=== PATIENT | female | born 1960 | race Caucasian/White ===

== ENCOUNTER 2022-05-13 06:48 | Outpatient (REF) | payer OTHER, SELFPAY ==
[2022-05-13 11:17] LABS: MANUAL DIFF FLAG NO
[2022-05-13 11:23] LABS: Basophils Absolute Auto 0.1 X10*3/uL (0.0-0.2); Eosinophils Absolute Auto 0.2 X10*3/uL (0.0-0.4); Eosinophils Percent Auto 3.6 % (0-4); Hematocrit 41.9 % (37.0-47.0); Hemoglobin 13.8 g/dl (12.0-16.0); Imm Gran Abs Auto 0.02 X10*3/uL (0.00-0.03); Imm Gran Pct Auto 0.4 % (0.0-0.4); Lymphocytes Absolute Auto 1.4 X10*3/uL (1.2-4.9); Mean Corpuscular HGB Conc 32.9 g/dl (31.0-35.0); Mean Corpuscular Hemoglobin 31.2 pg (27.0-33.0); Mean Corpuscular Volume 94.8 fL (80.0-98.0); Mean Platelet Volume 13.5 fL (9.4-12.3); Monocytes Absolute Auto 0.5 X10*3/uL (0.1-1.2); Monocytes Percent Auto 9.2 % (2-11); Neutrophils Absolute Auto 3.1 x10*3/uL (2.0-8.3); Neutrophils Percent Auto 58.8 % (45-73); Platelet Count 160 X10*3/uL (160-400); Red Blood Count 4.42 X10*6/uL (4.20-5.50); Red Cell Distribution Width 12.2 % (11.0-16.0); White Blood Count 5.2 X10*3/uL (4.8-10.8)
[2022-05-13 11:46] LABS: Alanine Aminotransferase 18 U/L (0-31); Anion Gap 14 (12-20); Aspartate Amino Transferase 18 U/L (5-31); Blood Urea Nitrogen 20 mg/dL (9-16); Calcium 9.1 mg/dL (8.4-10.2); Carbon Dioxide 27 mmol/L (22-29); Chloride 104 mmol/L (96-108); Cholesterol 230 mg/dL; Estimated Glomerular Filt Rate > 60; Glucose Fasting 86 mg/dL (60-99); HDL Cholesterol 62 mg/dL; LDL Cholesterol Calculated 150 mg/dl; Potassium 4.3 mmol/L (3.3-5.1); Sodium 141 mmol/L (135-145); Triglycerides 90 mg/dL
[2022-05-13 11:56] LABS: Vitamin D 25-OH Total 34.5 ng/mL (>30)
[2022-05-13 12:20] LABS: Vitamin B12 390 pg/mL (200-900)
== END 2022-05-13 06:49 | disposition home or self-care (01) ==
LOC: HO.HMGCLDS 06:48
PROVIDERS: PCP Internal Medicine; Visit Provider Internal Medicine
DX: Z00.01 Encounter for general adult medical examination with abnormal findings (principal); N95.9 Unspecified menopausal and perimenopausal disorder; J38.2 Nodules of vocal cords
CPT/HCPCS: 36415; 80048; 80061; 82306; 82607; 82746; 84450; 84460; 85025

== ENCOUNTER 2023-09-19 08:18 | Outpatient (AMB) | payer OTHER, SELFPAY ==
--- NOTE | 2023-09-19 08:25 | MHC.PC.OV ---
Vital Signs 09/19/23 08:31 Height 5 ft 1 in Weight 160 lb BMI 30.2 BP 112/80 Blood Pressure Location Rt brachial Position Sitting Pulse 76 Pulse Source Pulse Oximeter Pulse Oximetry (%) 95 Oxygen Delivery Method Room Air Intake Visit Reasons: Annual PE Intake Note: Pt is here today for her PE: last mammogram 05/30/23, pap smear 2yrs ago a [facility] has an appt 11/23/23 for pap: colonoscopy scheduled for 09/21/23 at [facility] Allergies hydromorphone [From DILAUDID] Allergy (Mild, Verified 09/19/23 08:58) UNKNOWN Medication List - Last Reconciled 09/19/23 by Vickie Jorgensen MD ibuprofen mg PO DAILY sertraline 75 mg (1.5 x 50 mg) PO DAILY Tobacco use date assessed: 09/19/23 Dental Screening Dental Screen Date: 09/19/23 Did you have a dental visit in the last 12 months?: Yes Did you have a dental problem in the last 6 months where you did not have access to dental care?: Yes Was dental information given to patient?: Patient has dentist HPI Annual PE HPI Details 63-year-old lady here today for her physical exam. She had a mammogram 05/30/23, pap smear 2yrs ago at [facility], and has an appt 11/23/23 for pap; colonoscopy scheduled for 09/21/23 at [facility] withn Dr Cody Covington. Sees [facility] in [facility] for her routine skin exam here Has dyslipidemia, currently not on any medication, but has been following a healthy diet and exercises regularly. She has generalized anxiety disorder, currently doing well on sertraline. Still works full-time. Feels well with no complaints at present time. She is up-to-date with all her vaccinations. [facility] Medical History (Updated 09/19/23 @ 09:22 by Vickie Jorgensen MD) Hyperlipidemia Generalized anxiety disorder Vocal cord nodule Stress incontinence in female FH: brain aneurysm History of deviated nasal septum Hx of dislocation of ankle Hx of aneurysm Surgical History History of ankle surgery Family History Father Diabetes mellitus Mother Macular degeneration Atrial fibrillation HTN (hypertension) Social History Housing: House Patient Tobacco Use Status: Former Tobacco user Years Smoked: 20 yrs e-Cigarette/Vaping Use: Never Used Second Hand Smoke Exposure: No service: No Current occupational status: employed Cognitive needs: No Hearing needs: No Vision needs: Yes Female Reproductive History Menstrual Menopause type: natural Questionnaire PHQ-9 Over the last 2 weeks, how often have you been bothered by any of the following problems? 1. Little interest or pleasure in doing things: not at all 2. Feeling down, depressed, or hopeless: not at all 3. Trouble falling or staying asleep, or sleeping too much: not at all 4. Feeling tired or having little energy: several days 5. Poor appetite or overeating: several days 6. Feeling bad about yourself - or that you are a failure or have let yourself or your family down: not at all 7. Trouble concentrating on things, such as reading the newspaper or watching television: several days 8. Moving or speaking so slowly that other people could have noticed. Or the opposite - being so fidgety or restless that you have been moving around a lot more than usual: not at all 9. Thoughts that you would be better off or of hurting yourself in some way: not at all Total score: 3 Depression Screening Interpretation: Negative Depression Screening Done: Yes 11446 - PHQ-9 Billing: Yes Source: Developed by Drs. Sai Pearson, Raya Grady, Denton Townsend and colleagues, with an educational david from [employer]. Thrive Questionnaire Date Thrive assessed: 09/19/23 I am a: Patient What is your living situation today?: I have a steady place to live Within the past 12 months, did the food you bought not last and you didn't have the money to get more?: Never true Within the past 12 months, did you worry whether your food would run out before you got money to buy more?: Never true Do you have trouble paying for medicines?: No Do you have trouble getting transportation to medical appointments?: No Do you have trouble paying your heating and electricity bill?: No Do you have trouble taking care of your child, family member or friend?: No Do you have trouble with day-to-day activities such as bathing, preparing meals, shopping, managing finances, etc.?: No Are you currently unemployed and looking for a job?: No Are you interested in more education?: No THRIVE Score: 0 AUDIT C Alcohol Use Questionnaire (AUDIT-C) 1. How often do you have a drink containing alcohol?: Never Total Score: 0 STEFFANY-7 AMB Questionnaire STEFFANY-7 Date STEFFANY - 7 assessed: 09/19/23 Feeling nervous, anxious, or on edge: 1 = Several days Not being able to stop or control worryin = Several days Worrying too much about different things: 1 = Several days Trouble relaxin = Several days Being so restless that it is hard to sit still: 1 = Several days Becoming easily annoyed or irritable: 0 = Not at all Feeling afraid as if something awful might happen: 0 = Not at all Total STEFFANY-7 score (0-4 normal; 5-9 mild; 10-14 moderate; 15-21 severe): 5 Source: Developed by Drs. Sai Pearson, Raya Grady, Denton Townsend and colleagues, with an educational david from [employer]. STEFFANY-7 Assessment Billing STEFFANY-7 Assessment Tool: STEFFANY-7 Assessment 15908 Review of Systems Const Denies body aches, Denies fatigue, Denies fever(s), Denies headache(s) and Denies weakness [facility] glasses Denies change in vision ENT Denies dysphagia, Denies dizziness, Denies headache(s), Denies nasal congestion and Denies post nasal drip Card Denies chest pain, Denies lightheadedness, Denies palpitations and Denies dyspnea Resp Denies chest congestion, Denies cough, Denies dyspnea and Denies wheezing GI Denies abdominal pain, Denies change in bowel habits, Denies dysphagia and Denies heartburn Details: Has occasional incontinence with cough and sneezing Denies hot flashes, Denies dysuria, Denies urinary hesitancy and Denies vaginal discharge Musc Reports no additional complaints Skin/Breast Details: Goes to [facility] in [facility] for her routine skin exam Denies lesions and Denies rash Neuro Denies dizziness, Denies headache(s) and Denies weakness Psych Reports no additional complaints Endo Denies fatigue and Denies palpitations Rodrigo/Lymph Denies easy bleeding and Denies easy bruising Aller/Immun Denies seasonal rhinorrhea and Denies wheezing Physical exam (Primary Care) Vital Signs: Last Vital Signs Pulse 76 09/19/23 08:31 BP 112/80 09/19/23 08:31 Pulse Ox 95 09/19/23 08:31 Oxygen Delivery Method Room Air 09/19/23 08:31 BMI result Body Mass Index 30.2 Tobacco/Smoking Status: Tobacco use Status Tobacco use date assessed 09/19/23 09/19/23 08:34 Patient Tobacco Use Status Former Tobacco user 09/19/23 08:27 e-Cigarette/Vaping Use Never Used 09/19/23 08:27 PHQ-9: PHQ-9 Score PHQ-9: Total score 3 09/19/23 08:44 Depression Screening Interpretation: Negative Thrive Assessment: Date of Thrive Assessment Date Thrive assessed 09/19/23 09/19/23 08:44 Const General: cooperative, comfortable and no acute distress Orientation/consciousness: patient oriented x3 Limitations: no limitations HENMT Ears: hearing grossly normal bilaterally, external ears normal, TM's normal bilaterally and EAC's normal General nose exam: Normal external nose present, Normal nasal mucous membranes and turbinates present and No nasal discharge present Mouth: Normal oral and palatal mucosa present, oropharynx normal and moist mucous membranes Throat: Yes posterior oropharynx normal Eyes Pupils: Equal, round and reactive pupils present Neck Neck: Yes full ROM, Yes no lymphadenopathy and Yes supple Chest Breast/axilla palpation: normal palpation of the breasts Resp Effort & Inspection: normal respiratory effort and able to speak in complete sentences Auscultation: clear to auscultation bilaterally Cardio Rate: regular rate Rhythm: regular rhythm Heart sounds: S1 normal heart sound present and S2 normal heart sound present GI Inspection: Yes normal to inspection Palpation (GI): Soft to palpation, nontender and no masses Auscultation: normal bowel sounds Other: sees OBGYN for routine pap / pelvic exam and mammogram ordered, seen 08/2021 Back/Spine/Pelvis Back: No back tenderness Skin General skin exam: no rashes or lesions noted Neuro General: patient oriented x3, gait normal, tone normal, moves all extremities, Normal light touch and pain sensation and no focal motor deficits Cranial nerves: Yes Equal, round and reactive pupils present Cognition (Neuro): normal cognition Gait exam (Neuro): Normal gait present Motor exam (neuro): 5/5 motor strength present throughout Extrem General: Yes full ROM, Yes no joint enlargement, Yes no clubbing, cyanosis or edema, Yes no pedal edema, Yes no calf tenderness and Yes normal gait Psych Appearance: grossly normal and well kempt Speech and movement: Normal speech and movement present Affect: normal affect Attitude: cooperative Thought process: Normal thought process present Assessment and Plan Assessment & Plan (1) Annual visit for general adult medical examination with abnormal findings: Code(s): Z00.01 - Encounter for general adult medical examination with abnormal findings Plan: Will check appropriate labs. Continue regular dental visit every 6 months and regular eye exams, at least every 2 years. Take adequate calcium in diet and vitamin-D 3 at 2000 IU per cap once a day, in addition to weight-bearing exercises to help maintain good muscle tone and weight control. Instructed to do self-breast exam, and continue with yearly mammogram, and cervical cancer screening, goes to [facility]. Up-to-date with all her vaccinations. Has an appointment for her screening colonoscopy in [address] Covington at [facility]. (2) Hyperlipidemia: Code(s): E78.5 - Hyperlipidemia, unspecified Qualifiers: Hyperlipidemia type: pure hypercholesterolemia Qualified Code(s): E78.00 - Pure hypercholesterolemia, unspecified Plan: Fasting lipid panel ordered, continue with healthy eating habits, and regular exercise (3) Generalized anxiety disorder: Code(s): F41.1 - Generalized anxiety disorder Plan: Stable and controlled on sertraline (4) Post-menopause: Code(s): Z78.0 - Asymptomatic menopausal state Plan: Continue with regular weight-bearing exercise and take adequate calcium and vitamin-D 3 supplements at least 2000 units daily. Advised to get bone density scan, will check with her OB if they are going to be ordered together with her screening mammogram in May this year Orders: Orders Lipid Panel Today E78.5 - Hyperlipidemia, unspecified, F41.1 - Generalized anxiety disorder, Z00.01 - Encounter for general adult medical examination with abnormal findings, Z78.0 - Asymptomatic menopausal state Basic Metabolic Panel Fasting Today E78.5 - Hyperlipidemia, unspecified, F41.1 - Generalized anxiety disorder, Z00.01 - Encounter for general adult medical examination with abnormal findings, Z78.0 - Asymptomatic menopausal state Alanine Aminotransferase Today E78.5 - Hyperlipidemia, unspecified, F41.1 - Generalized anxiety disorder, Z00.01 - Encounter for general adult medical examination with abnormal findings, Z78.0 - Asymptomatic menopausal state Aspartate Amino Transferase Today E78.5 - Hyperlipidemia, unspecified, F41.1 - Generalized anxiety disorder, Z00.01 - Encounter for general adult medical examination with abnormal findings, Z78.0 - Asymptomatic menopausal state Vitamin D 25-OH Total Today E78.5 - Hyperlipidemia, unspecified, F41.1 - Generalized anxiety disorder, Z00.01 - Encounter for general adult medical examination with abnormal findings, Z78.0 - Asymptomatic menopausal state Coding Level of Care Code Est Pt Prev Care 40-64y([id number]) Diagnoses Annual visit for general adult medical examination with abnormal findings Z00.01 Pure hypercholesterolemia E78.00 Hyperlipidemia type: pure hypercholesterolemia Generalized anxiety disorder F41.1 Post-menopause Z78.0 Additional Codes STEFFANY-7 Assessment Billing - STEFFANY-7 Assessment Tool: STEFFANY-7 Assessment 11523 ([id number])
[2023-09-19 08:31] VITALS: BP 112/80; PULSE 76; O2SAT 95; BMI 30.2
== END 2023-09-19 09:19 | disposition home or self-care (01) ==
PROVIDERS: PCP Internal Medicine; Visit Provider Internal Medicine
DX: Z00.00 Encounter for general adult medical examination without abnormal findings (principal); E78.00 Pure hypercholesterolemia, unspecified; F41.1 Generalized anxiety disorder; Z78.0 Asymptomatic menopausal state
CPT/HCPCS: 99396

== ENCOUNTER 2023-09-19 09:19 | Outpatient (REF) | payer OTHER, SELFPAY ==
[2023-09-19 11:06] LABS: Alanine Aminotransferase 18 U/L (0-31); Anion Gap 10 (12-20); Aspartate Amino Transferase 18 U/L (5-31); Blood Urea Nitrogen 22 mg/dL (9-16); Calcium 9.4 mg/dL (8.4-10.2); Carbon Dioxide 31 mmol/L (22-29); Chloride 104 mmol/L (96-108); Cholesterol 229 mg/dL (<200); Estimated Glomerular Filt Rate > 60; Glucose Fasting 85 mg/dL (60-99); HDL Cholesterol 62 mg/dL (>40); LDL Cholesterol Calculated 144 mg/dL (<100); Potassium 4.3 mmol/L (3.3-5.1); Sodium 141 mmol/L (135-145); Triglycerides 115 mg/dL (<150)
[2023-09-19 11:21] LABS: Vitamin D 25-OH Total 30.6 ng/mL (>30)
== END 2023-09-19 09:20 | disposition home or self-care (01) ==
LOC: HO.HMGCLDS 09:19
PROVIDERS: PCP Internal Medicine; Visit Provider Internal Medicine
DX: Z00.01 Encounter for general adult medical examination with abnormal findings (principal); E78.5 Hyperlipidemia, unspecified; F41.1 Generalized anxiety disorder; Z78.0 Asymptomatic menopausal state
CPT/HCPCS: 36415; 80048; 80061; 82306; 84450; 84460

== ENCOUNTER 2024-10-02 13:24 | Outpatient (AMB) | payer OTHER, SELFPAY ==
--- NOTE | 2024-10-02 13:38 | MHC.PC.OV ---
Vital Signs 10/02/24 13:49 Height 5 ft 2 in Weight 158 lb BMI 28.9 BP 110/70 Blood Pressure Location Rt brachial Position Sitting Respiration 14 Pulse 61 Pulse Source Pulse Oximeter Temp 97.8 F Temp Source Oral Pulse Oximetry (%) 98 Oxygen Delivery Method Room Air Intake Visit Reasons: Annual PE Intake Note: Pt is here today for her PE: last mammogram 05/30/23, papsmear 08/30/21 Allergies hydromorphone [From DILAUDID] Allergy (Mild, Verified 10/02/24 14:11) UNKNOWN Medication List - Last Reconciled 10/02/24 by Vickie Jorgensen MD ibuprofen mg PO DAILY sertraline 75 mg (1.5 x 50 mg) PO DAILY Tobacco use date assessed: 10/02/24 Fall risk assessment: No Falls in past year Last assessed Fall Risk: 10/02/24 Dental Screening Dental Screen Date: 10/02/24 Did you have a dental visit in the last 12 months?: Yes Did you have a dental problem in the last 6 months where you did not have access to dental care?: No Was dental information given to patient?: Patient has dentist HPI Annual PE HPI Details 64-year-old lady with history of dyslipidemia, generalized anxiety disorder, here today for physical exam. Anxiety symptoms stable and controlled on sertraline 75 mg daily. She has been following a healthy diet, stays active, still works full-time She is up-to-date with her screening mammogram done 07/30/2024 which showed negative findings, done at [facility]. She had a bone density scan the same day which showed presence of osteopenia with a T-score of-1.5 and femoral neck and normal in total hip and AP spine no history of fracture. She had her screening colonoscopy done by Dr Cody Covington last 09/21/23 , with negative findings , per patient , copy of results requested . She goes to [facility] for routine Pap and pelvic exam, last done 08/30/2021 with negative finding [facility] Medical History Osteopenia of femoral neck Hyperlipidemia Generalized anxiety disorder Vocal cord nodule Stress incontinence in female FH: brain aneurysm History of deviated nasal septum Hx of dislocation of ankle Hx of aneurysm Surgical History History of ankle surgery Family History Father Diabetes mellitus Mother Macular degeneration Atrial fibrillation HTN (hypertension) Social History Housing: House Patient Tobacco Use Status: Former Tobacco user Years Smoked: 20 yrs e-Cigarette/Vaping Use: Never Used Second Hand Smoke Exposure: No service: No Current occupational status: employed Cognitive needs: No Hearing needs: No Vision needs: Yes Questionnaire PHQ-9 Over the last 2 weeks, how often have you been bothered by any of the following problems? 1. Little interest or pleasure in doing things: not at all 2. Feeling down, depressed, or hopeless: not at all 3. Trouble falling or staying asleep, or sleeping too much: not at all 4. Feeling tired or having little energy: not at all 5. Poor appetite or overeating: not at all 6. Feeling bad about yourself - or that you are a failure or have let yourself or your family down: not at all 7. Trouble concentrating on things, such as reading the newspaper or watching television: not at all 8. Moving or speaking so slowly that other people could have noticed. Or the opposite - being so fidgety or restless that you have been moving around a lot more than usual: not at all 9. Thoughts that you would be better off or of hurting yourself in some way: not at all Total score: 0 Depression Screening Interpretation: Negative Depression Screening Done: Yes Source: Developed by Drs. Sai Pearson, Raya Grady, Denton Townsend and colleagues, with an educational david from [employer]. Thrive Questionnaire Date Thrive assessed: 10/02/24 I am a: Parent/Caregiver What is your living situation today?: I have a steady place to live Within the past 12 months, did the food you bought not last and you didn't have the money to get more?: Never true Within the past 12 months, did you worry whether your food would run out before you got money to buy more?: Never true Do you have trouble paying for medicines?: No Do you have trouble getting transportation to medical appointments?: No Do you have trouble paying your heating and electricity bill?: No Do you have trouble taking care of your child, family member or friend?: No Do you have trouble with day-to-day activities such as bathing, preparing meals, shopping, managing finances, etc.?: No Are you currently unemployed and looking for a job?: No Are you interested in more education?: No Please select the resources that you would like help with: None Currently or been in a relationship where the following occur: No concerns reported THRIVE Score: 0 AUDIT C Alcohol Use Questionnaire (AUDIT-C) 1. How often do you have a drink containing alcohol?: Never Total Score: 0 STEFFANY-7 AMB Questionnaire STEFFANY-7 Date STEFFANY - 7 assessed: 10/02/24 Feeling nervous, anxious, or on edge: 0 = Not at all Not being able to stop or control worryin = Not at all Worrying too much about different things: 0 = Not at all Trouble relaxin = Not at all Being so restless that it is hard to sit still: 0 = Not at all Becoming easily annoyed or irritable: 0 = Not at all Feeling afraid as if something awful might happen: 0 = Not at all Total STEFFANY-7 score (0-4 normal; 5-9 mild; 10-14 moderate; 15-21 severe): 0 Source: Developed by Drs. Sai Pearson, Raya Grady, Denton Townsend and colleagues, with an educational david from [employer]. STEFFANY-7 Assessment Billing STEFFANY-7 Assessment Tool: STEFFANY-7 Assessment 03740 Review of Systems Const Denies body aches, Denies fever(s), Denies headache(s) and Denies weakness [facility] wears reading glasses Denies change in vision ENT Denies dysphagia, Denies dizziness, Denies headache(s), Denies nasal congestion and Denies post nasal drip Card Denies chest pain, Denies lightheadedness and Denies dyspnea Resp Denies chest congestion, Denies cough, Denies dyspnea and Denies wheezing GI Denies abdominal pain, Denies change in bowel habits, Denies dysphagia and Denies heartburn Details: Has occasional incontinence with cough and sneezing Denies hot flashes, Denies dysuria, Denies urinary hesitancy and Denies vaginal discharge Musc Reports no additional complaints Skin/Breast Details: [facility]es to [facility] for her routine skin exam Denies lesions and Denies rash Neuro Denies dizziness, Denies headache(s) and Denies weakness Psych Reports no additional complaints Endo Reports no additional complaints Rodrigo/Lymph Reports no additional complaints Aller/Immun Denies seasonal rhinorrhea and Denies wheezing Physical exam (Primary Care) Vital Signs: Last Vital Signs Temp 97.8 F 10/02/24 13:49 Pulse 61 10/02/24 13:49 Resp 14 10/02/24 13:49 BP 110/70 10/02/24 13:49 Pulse Ox 98 10/02/24 13:49 Oxygen Delivery Method Room Air 10/02/24 13:49 BMI result Body Mass Index 28.9 Tobacco/Smoking Status: Tobacco use Status Tobacco use date assessed 10/02/24 10/02/24 13:40 Patient Tobacco Use Status Former Tobacco user 10/02/24 13:40 e-Cigarette/Vaping Use Never Used 10/02/24 13:40 PHQ-9: PHQ-9 Score PHQ-9: Total score 0 10/02/24 14:11 Depression Screening Interpretation: Negative Thrive Assessment: Date of Thrive Assessment Date Thrive assessed 10/02/24 10/02/24 13:40 Currently or been in a relationship where the following occur: No concerns reported Advance Care Planning discussion: Completed/Scanned Date of discussion: 10/02/24 Who was present: patient Forms completed: Health Care Proxy Time spent: 16-45 minutes Actual minutes spent: 2 Const General: comfortable and no acute distress Orientation/consciousness: patient oriented x3 Limitations: no limitations HENMT Ears: hearing grossly normal bilaterally, external ears normal, TM's normal bilaterally and EAC's normal General nose exam: Normal external nose present Mouth: Normal oral and palatal mucosa present, oropharynx normal and moist mucous membranes Throat: Yes posterior oropharynx normal Eyes Pupils: Equal, round and reactive pupils present Neck Neck: Yes full ROM, Yes no lymphadenopathy and Yes supple Chest Breast/axilla palpation: normal palpation of the breasts Resp Effort & Inspection: normal respiratory effort and able to speak in complete sentences Auscultation: clear to auscultation bilaterally Cardio Rate: regular rate Rhythm: regular rhythm Heart sounds: S1 normal heart sound present and S2 normal heart sound present GI Inspection: Yes normal to inspection Palpation (GI): Soft to palpation, nontender and no masses Auscultation: normal bowel sounds Back/Spine/Pelvis Back: No back tenderness Skin General skin exam: no rashes or lesions noted Neuro General: patient oriented x3, gait normal, tone normal, moves all extremities, Normal light touch and pain sensation and no focal motor deficits Cranial nerves: Yes Equal, round and reactive pupils present Cognition (Neuro): normal cognition Gait exam (Neuro): Normal gait present Motor exam (neuro): 5/5 motor strength present throughout Extrem General: Yes full ROM, Yes no joint enlargement, Yes no clubbing, cyanosis or edema, Yes no pedal edema, Yes no calf tenderness and Yes normal gait Psych Appearance: grossly normal and well kempt Speech and movement: Normal speech and movement present Affect: normal affect Attitude: cooperative Thought process: Normal thought process present Immunizations pneumoc 20-jessy conj-dip cr(PF) 0.5 mL IM syringe Performing Provider: Vickie Jorgensen MD Performing Location: [facility] [place] [facility] Administered by: Anjali Dumont CMA on 10/02/24 14:49 Dose Route Admin Location Dispensed Lot Number Expiration Date [facility] Knitting Machine Operator 0.5 mL IM Left Deltoid 0.5 mL [id number] 12/18/25 9158-0474-16 [employer] VIS Given Date VIS Provided VIS Publication Date 10/02/24 Single Vaccine 21 Eligibility Eligibility Date Funding Source Not [facility] Eligible 10/02/24 Private Coding Level of Care Code Est Pt Prev Care >65y(23287) Diagnoses Annual visit for general adult medical examination with abnormal findings Z00.01 Pure hypercholesterolemia E78.00 Hyperlipidemia type: pure hypercholesterolemia Encounter for counseling regarding advance directives Z71.89 Generalized anxiety disorder F41.1 Osteopenia of femoral neck M85.859 Additional Codes Vital Signs *Quality* - Advance Care Planning discussion: Completed/Scanned ([id number]) Vital Signs *Quality* - Time spent: 16-45 minutes ([id number]) STEFFANY-7 Assessment Billing - STEFFANY-7 Assessment Tool: STEFFANY-7 Assessment 25774 ([id number]) Assessment & Plan Assessment & Plan (1) Annual visit for general adult medical examination with abnormal findings: Code(s): Z00.01 - Encounter for general adult medical examination with abnormal findings Plan: Will check appropriate labs. Continue with regular dental visit every 6 months and regular eye exams, at least every 2 years. Take adequate calcium in diet and vitamin-D 3 at 2000 IU per cap once a day, in addition to weight-bearing exercises to help maintain good muscle tone and weight control. Instructed to do self-breast exam, and continue with yearly mammograms currently up-to-date. She is also up-to-date with her bone density scan, done last year showing osteopenia in femoral neck. Up-to-date with her screening colonoscopy, done 09/21/[facility] at [facility] withn Dr Cody Covington. Up-to-date with all her vaccinations except for her pneumococcal vaccine, Prevnar 20 given today (2) Hyperlipidemia: Code(s): E78.5 - Hyperlipidemia, unspecified Category: Medical Qualifiers: Hyperlipidemia type: pure hypercholesterolemia Qualified Code(s): E78.00 - Pure hypercholesterolemia, unspecified Plan: Fasting lipid panel ordered today continue with healthy eating habits, and stay active, walks regularly for exercise. (3) Encounter for counseling regarding advance directives: Code(s): Z71.89 - Other specified counseling Plan: Initiated the conversation about Advanced Directives. Advanced Directives help patients prepare for current and future decisions about their medical treatment and place of care. Discussed with patient that it is a process where a patients current condition and prognosis are reviewed, their wishes for information regarding their illness are elicited, and likely medical dilemmas are presented and options discussed. Healthcare proxy form completed . The form can be amended as needed, reviewed yearly and make changes as needed (4) Generalized anxiety disorder: Code(s): F41.1 - Generalized anxiety disorder Category: Medical Plan: Stable and controlled on sertraline 75 mg taken once a day (5) Osteopenia of femoral neck: Code(s): M85.859 - Other specified disorders of bone density and structure, unspecified thigh Category: Medical Plan: Repea bone density scan next year. , encouraged to do regular weight-bearing exercise, continue taking adequate calcium from dietary sources and take at least 2000 his vitamin-D 3 daily Orders: Orders Complete Blood Count Auto Diff Today E78.00 - Pure hypercholesterolemia, unspecified, M85.859 - Other specified disorders of bone density and structure, unspecified thigh, Z00.01 - Encounter for general adult medical examination with abnormal findings, Z13.1 - Encounter for screening for diabetes mellitus, Z71.89 - Other specified counseling Basic Metabolic Panel Fasting Today E78.00 - Pure hypercholesterolemia, unspecified, M85.859 - Other specified disorders of bone density and structure, unspecified thigh, Z00.01 - Encounter for general adult medical examination with abnormal findings, Z13.1 - Encounter for screening for diabetes mellitus, Z71.89 - Other specified counseling Aspartate Amino Transferase Today E78.00 - Pure hypercholesterolemia, unspecified, M85.859 - Other specified disorders of bone density and structure, unspecified thigh, Z00.01 - Encounter for general adult medical examination with abnormal findings, Z13.1 - Encounter for screening for diabetes mellitus, Z71.89 - Other specified counseling Pneumococcal 20 Immunization Today Z23 - Encounter for immunization Alanine Aminotransferase Today E78.00 - Pure hypercholesterolemia, unspecified, M85.859 - Other specified disorders of bone density and structure, unspecified thigh, Z00.01 - Encounter for general adult medical examination with abnormal findings, Z13.1 - Encounter for screening for diabetes mellitus, Z71.89 - Other specified counseling Lipid Panel Today E78.00 - Pure hypercholesterolemia, unspecified, M85.859 - Other specified disorders of bone density and structure, unspecified thigh, Z00.01 - Encounter for general adult medical examination with abnormal findings, Z13.1 - Encounter for screening for diabetes mellitus, Z71.89 - Other specified counseling Vitamin D 25-OH Total Today E78.00 - Pure hypercholesterolemia, unspecified, M85.859 - Other specified disorders of bone density and structure, unspecified thigh, Z00.01 - Encounter for general adult medical examination with abnormal findings, Z13.1 - Encounter for screening for diabetes mellitus, Z71.89 - Other specified counseling
[2024-10-02 13:49] VITALS: BP 110/70; PULSE 61; RESP 14; TEMP 36.6; O2SAT 98; BMI 28.9
--- OUTSIDE RECORDS SUMMARY | 2024-10-02 14:49 | XMS_ITS | Referral Summary ---
Author Organization [facility] Address [address] [place] [address] Care Team Providers Care Copyist Name Role Phone Vickie Jorgensen MD Primary Care Provider Allergies Active Allergy Reactions Criticality Noted Date Comments Hydromorphone Hives 11/08/2018 Medications sertraline (ZOLOFT) 50 mg tablet Take 75 mg by mouth daily. 5 9 Active amoxicillin-cla vulanate (AUGMENTIN) 125-31.25 mg/5 mL suspension Take 125 mg by mouth 2 times a day. Active ibuprofen (MOTRIN) 600 mg tablet 1 Active fluticasone propionate (FLONASE) 50 mcg/actuation nasal spray Administer 2 sprays into each nostril once a day. 16 g 5 2 Active sod bicarb-sod chlor-neti pot (NeilMed NasaFlo) packet with rinse device 1 application by sinus irrigation route 2 (two) times a day. 1 each 2 2 Active Active Problems Problem Noted Date Diagnosed Date Subarachnoid Hemorrhage 06/01/2009 Hay fever 06/01/2009 Aneurysm 06/01/2009 Social History Tobacco Use Types Packs/Day Years Used Date Smoking Tobacco: Former Smokeless Tobacco: Never Alcohol Use Standard Drinks/Week Comments Never 0 (1 standard drink = 0.6 oz pur e alcohol) Comments Unknown Sex and Gender Information Value Date Recorded Sex Assigned at Female 08/11/2022 12:12 PM EST Legal Sex Female 11:06 AM EDT Gender Identity Female 08/11/2022 12:12 PM EST Sexual Orientation Straight 08/11/2022 12 :12 PM EST Last Filed Vital Signs Vital Sign Reading Time Taken Comments Blood Pressure 121/84 12/29/2020 1:52 PM EDT Pulse 73 12/29/2020 1:52 PM EDT Temperature 36.8 ??C (98.3 ??F) 12/29/2020 1:52 PM ED T Respiratory Rate - - Oxygen Saturation 98% 10/12/2009 11:19 AM EST Inhaled Oxygen Concentration - - Weight 70.3 kg (155 lb) 12/13/2018 3:15 PM EDT Height 157.5 cm (5' 2 ) 11/08/2018 2:18 PM EDT Body Mass Index 28.35 11/08/2018 2:18 PM EDT Plan of Treatment Not on file Insurance [facility] Care Teams Copyist Relationship Specialty Start Date End Date Vickie Jorgensen MD [address] [place] [address] PCP - General Internal Medicine 02/02/22
--- OUTSIDE RECORDS SUMMARY | 2024-10-02 14:49 | XMS_ITS | Encounter Summary ---
Author Organization [facility] Address [address] [place] [address] Care Team Providers Care Oracle Solutions Architect Name Role Phone Vickie Jorgensen MD Primary Care Provider Encounter Details Date Type Department Care Team (Late st Contact Info) Description 10/23/2020 Orders Only [facility] Interventional Radiology [address] [place], [place] [phone] Linette Sal MD [address] [place], [place] [phone] Social History Tobacco Use Types Packs/Day Years [...] Orientation Straight 08/11/2022 12 :12 PM EST documented as of this encounter Plan of Treatment Not on file documented as of this encounter Visit Diagnoses Not on filedocumented in this encounter Care Teams Oracle Solutions Architect Relationship Specialty Start Date End Date Vickie Jorgensen MD [address] [place] [address] PCP - General Internal Medicine 02/02/22 documented as of this encounter
--- OUTSIDE RECORDS SUMMARY | 2024-10-02 14:49 | XMS_ITS ---
Author Organization [facility] Address [address] [place] [address] Care Team Providers Care Landmen Name Role Phone YVONNE RAMIREZ Unavailable [phone] REASON FOR VISIT cx and r/s appt Encounters Encounter Location Date Provider Diagnosis [address] [place] [id number] 01/29/2024 YVONNE RAMIREZ PLAN OF TREATMENT No Information Progress Notes * Fabio HIGGINSenDOB: [birth year] (63 yo F)Acc No.[id number]:01/29/2024 Patient:??Delmy HIGGINS :1960?Age:63 Y?Sex:Fe male Address:[address] [place] [id number] * true * Date:??
--- OUTSIDE RECORDS SUMMARY | 2024-10-02 14:49 | XMS_ITS | Patient Health Record ---
Author Organization [email or web address] Address [address] [place] [address] Care Team Providers Care Field Radio Operator Name Role Phone YVONNE RAMIREZ Unavailable [phone] CANDIS LUEVANO Unavailable [phone] ALLERGIES Allergen (clinical drug ingredient) Drug/Non Drug Allergy documented on EMR Reaction Allergy Type Onset Date Status hydromorphone Dilaudid hives Drug Allergy Act arlene REASON FOR REFERRAL No Information MEDICATIONS Medication SIG (Take, Route, Fr equency, Duration) Notes Start Date End Date Status Wegovy 1 MG/0.5ML 1mg Subcutaneous wee kly for 30 days Active Sertraline HCl 20 MG/ML 5 mL mixed with 4 ounces of water, orange juice, lemonade, salina mateo or lemon/cantwell soda Orally Once a day Active PROBLEMS Problem Type ICD Code Onset Dates Problem Status W/U Status Risk SNOMED Code Notes Problem Other obesity due to excess calories (E66.09) Active confirmed 765375338 Problem Anxiety disorder, unspecified (F41.9) Active confirmed 724848955 Problem Body mass index [BMI] 30.0-30.9, adult (Z68.30) Active confirmed 912367544 VITAL SIGNS Heart Rate 72 /min 12/07/2023 Oximetry 97 % 12/07/2023 Blood pressure diastolic 76 mm Hg 12/07/2023 Height 60 in 12/07/2023 Blood pressure systolic 120 mm Hg 12/07/2023 Weight 156 lbs 12/07/2023 BMI 30.46 kg/m2 12/07/2023 Encounters Encounter Location Date Provider Diagnosis [facility] [address] [place] [address] 11/01/[address] [facility] [address] [place], [place] 11/13/[address] [facility] [address] [place] [address] 11/15/[address] [facility] [address] [place], [place] 11/22/[address] [facility] [address] [place], [place] 11/28/[address] [facility] [address] [place], [place] 11/29/[address] [facility] [address] [place], [place] 01/30/[address] [facility] [address] [facility] [address] [place] [address] 10/25/2023 YVONNEHIRA RAMIREZ Other obesity due to excess calories E66.09 ; Body mass index [BMI] 30.0-30.9, adult Z68.30 ; Anxiety disorder, unspecified F41.9 and Depression, unspecified F32.A [facility] [address] [place], [place] 12/07/2023 YVONNE TERANKeyana Other obesity due to excess calories E66.09 ; Body mass index [BMI] 30.0-30.9, adult Z68.30 ; Anxiety disorder, unspecified F41.9 and Depression, unspecified F32.A [address] [facility] [address] [place] [address] 01/29/[address] [facility] [address] [place], [place] 10/25/2023 YVONNE BORHOT [facility] [address] [facility] [address] [place], [place] 10/25/2023 YVONNE RAMIREZ ASSESSMENTS Encounter Date Diagnosis Assessment Notes Treatment Notes Treatment Clinical Notes Section Notes 10/25/2023 Body mass index [BMI] 30.0-30.9, adult (ICD-10 - Z68.30) Patient will be started on compounded semaglutide program today discussed cost and and risks associated with this Plan is to transition to tradename Polina after a determined length of time Total time spent today was 60 minutes of which greater than 50% was spent on coordinating and counseling Patient has been found to be obese with a BMI of (30). Patient has class (1) obesity. We are a board certified obesity and weight management practice Patient has trialed behavioral modification, dietary restrictions and exercise for a minimum of 6 months The most recent [place] [employer] of clinical endocrinologists and [place] [employer] guidelines recommend patients who have overweight BMI or obesity BMI, who also have metabolic syndrome, prediabetes, HLD, and other comorbidities or at risk of developing type 2 diabetes should aim for a weight loss goal of at least 10% of the baseline body weight Patient counseled regarding effects of GLP/GIP-1 agonists, and other FDA approved wgt loss meds with regards to a multifactorial approach of weight loss as mentioned above and not solely appetite suppression. We have discussed the mechanism of GLP-1's/GIP, dual incretins I think this would be fantastic option for her given her metabolic workup and body composition We have discussed the risks and benefits and side effects including/and not limited to Sarcopenia, intestinal obstruction, constipation, nausea, lethargy, headache Discussed importance of protein consumption for muscle maintenance as well as strength and resistance training ,probiotics, B12 complex biotin , iron and other nutrients, To help avoid telogen effluvium There is no history of medullary thyroid cancer or multiple endocrine neoplasia There is also no history of cardiovascular disease, hypertension, palpitations, or arrhythmias In the setting of potential stimulant/amphetami ne use such as phentermine We have also discussed risks and benefits, and the use of compounded medications to help offset the national shortages as well as financial implications vs trade name drugs GLP must be discontinued upon initiation We have discussed the lifelong requirement of nutritional supplementation And adherence to an exercise regimen as well as importance of follow-up The patient understands and agrees Patient was reassured and welcomed to the practice. We discussed that we stress a hollistic medical approach with emphasis on lifestyle modification. Patient was informed that a healthy lifestyle with exercise and good eating habits can help reduce his risk of medical complications. He is explained that obesity increases his risk of diabetes, cardiovascular disease, or organ damage. We spent a lot of time discussing the relationship between food, exercise, sleep, mental health and obesity. Patient was counseled on the importance EATING local, organic food when possible. Patient was educated on clean 15 and dirty dozen. I provided information about reading books called The Food Rules by Sergio Lees and Eat Fat Get Lean by Dr Aj Cox. Self education is important in the journey for weight management. Patient was offered diagnostic testing. We want to measure visceral adiposity, advanced body composition, adverse lipids, fatty acid balance, risk for heart disease and atherosclerosis, markers of inflammation and genetic susceptibility. Patient was counseled on weight management and was advised to lose weight using A. Meal Replacement Products We discussed the lifelong requirement of nutritional supplementation and adherence to an exercise regimen as well as importance of dietary f/u Patient was educated on the replacement products called optifast. This is a good way of taking fixed amount of calories. It has been shown in studies to be ineffective weight management tool. We also recommend maintaining adequate protein intake and muscle composition, 1.5mg/kg This however has to be coupled with lifestyle intervention as well as laboratory data and EKG monitoring. It is impossible to know how a person will tolerate complete meal replacement. The side effects of meal replacement and weight loss could include syncopal attacks, dizziness, gallstones, potential cholecystectomy, possible heart attack and even . The benefits of meal replacement would be potential weight loss but no guarantees can be made. Meal replacement products are not covered by insurance. Once the patient has bought these products we cannot return them B. Lifestyle management which includes several strategies as below 1. Eat a low carbohydrate good fat good protein diet. Eliminate refined carbohydrates from the diet. Continue blood sugar and sugared beverages. Eat local organic when possible. Cook your own meals. Read food labels. None about healthy snacks. Portion control and food with low glycemic index 2. Exercise regularly. Try to get at least 6000 steps a day. Use a predominant to track activity level. Consider using apps like SeeYourImpact.org, myfitnesspal, lose it, stick as needed for self-monitoring and weight management. Consider group exercises. Consider hiring a six sigma black trainer. Regular exercise is schaefer to sustainable health and prevents as a buffer against weight regain 3. Sleep is most important for healing. Tried to sleep at least 8 hours a night. A good quality sleep needs a sleep ritual with ideal room temperature of around 68. It might help to take a shower and have no electronics in the room and sleep in a very dark room without artificial light. Start her sleep routine and get up early in the morning and go to bed on time 4. Make a social connection. Surround yourself with positive people with positive energy. Connect with friends and family. 5. Get into the habit of meditating and mindfulness while doing everything. 6. Go outside and connect with nature. C. Prescription medications Patient was educated on the use of prescription medications for medical weight loss. This is a growing list and includes phentermine, Topamax,Qsymia, contrave, belviq and saxenda, wegovy All prescription medications could have side effects including but not limited to kidney stones, seizure disorder cardiac arrhythmias heart attack pancreatitis etc. etc.. Patient was encouraged to read the prescription insert and have coaching with their pharmacist and make an informed decision about taking medication and know that these medications are being prescribed with good intentions and we do not know how a patient would react to her medication. Sudden medications are FDA approved for weight loss and there is also off label use depending on patient's inability to afford medications in an attempt to lose weight D. Behavioral counseling was done to establish a relationship between food and an mood. Patient was provided information about local counseling and psychiatry and Dr Morton at [facility]. We would like to cover regular topics and build on low glycemic eating exercise mindful eating, using yoga and meditation along with deep breathing and connecting with friends and family. E. MASS PAT reviewed, Patient's current medications were reviewed and opinion was given on medication that can cause weight gain and can be substituted F. Patient was assessed for risk with obesity including and not limiting to atherosclerosis heart disease stroke kidney disease, restrictive lung disease, irritable bowel syndrome and overall mortality. Risk of developing prediabetes diabetes and metabolic syndrome was discussed G. Therapeutic plan: We have decided to make therapeutic plan which would include choosing wisely on calories restricting portion getting active, tracking weight, getting good quality sleep and working on time management H. Patient will follow up in (4) weeks for weight management Of note, some information is being carried forward from prior records for informational purposes only and is being cited so that efficiency, safety and quality of the patient's care is not compromised This note was prepared using voice recognition software and direct typing Please excuse inadvertent salvage winder or typing errors, or uncorrected word substitutions Although every attempt has been made by the provider to proofread this document, occasional misspellings and typographical errors may still be present Due to the previous pandemic, and the use of personal protective equipment (PPE) This may decrease voice recognition accuracy Inadvertent salvage winder errors may occur 12/07/2023 Other obesity due to excess calories (ICD-10 - E66.09) Will get a 0.5 mg semaglutide compounded here today, third week Plan is to transition to tradename Wegovy 1 mg Starting in 1 week Total time spent today was 30 minutes of which greater than 50% was spent on coordinating and counseling Patient has been found to be obese with a BMI of (30). Patient has class (1) obesity. We are a board certified obesity and weight management practice Patient has trialed behavioral modification, dietary restrictions and exercise for a minimum of 6 months The most recent [place] [employer] of clinical endocrinologists and [place] [employer] guidelines recommend patients who have overweight BMI or obesity BMI, who also have metabolic syndrome, prediabetes, HLD, and other comorbidities or at risk of developing type 2 diabetes should aim for a weight loss goal of at least 10% of the baseline body weight Patient counseled regarding effects of GLP/GIP-1 agonists, and other FDA approved wgt loss meds with regards to a multifactorial approach of weight loss as mentioned above and not solely appetite suppression. We have discussed the mechanism of GLP-1's/GIP, dual incretins I think this would be fantastic option for her given her metabolic workup and body composition We have discussed the risks and benefits and side effects including/and not limited to Sarcopenia, intestinal obstruction, constipation, nausea, lethargy, headache Discussed importance of protein consumption for muscle maintenance as well as strength and resistance training ,probiotics, B12 complex biotin , iron and other nutrients, To help avoid telogen effluvium There is no history of medullary thyroid cancer or multiple endocrine neoplasia There is also no history of cardiovascular disease, hypertension, palpitations, or arrhythmias In the setting of potential stimulant/amphetami ne use such as phentermine We have also discussed risks and benefits, and the use of compounded medications to help offset the national shortages as well as financial implications vs trade name drugs GLP must be discontinued upon initiation We have discussed the lifelong requirement of nutritional supplementation And adherence to an exercise regimen as well as importance of follow-up The patient understands and agrees Patient was reassured and welcomed to the practice. We discussed that we stress a hollistic medical approach with emphasis on lifestyle modification. Patient was informed that a healthy lifestyle with exercise and good eating habits can help reduce his risk of medical complications. He is explained that obesity increases his risk of diabetes, cardiovascular disease, or organ damage. We spent a lot of time discussing the relationship between food, exercise, sleep, mental health and obesity. Patient was counseled on the importance EATING local, organic food when possible. Patient was educated on clean 15 and dirty dozen. I provided information about reading books called The Food Rules by Sergio Lees and Eat Fat Get Lean by Dr Aj Cox. Self education is important in the journey for weight management. Patient was offered diagnostic testing. We want to measure visceral adiposity, advanced body composition, adverse lipids, fatty acid balance, risk for heart disease and atherosclerosis, markers of inflammation and genetic susceptibility. Patient was counseled on weight management and was advised to lose weight using A. Meal Replacement Products We discussed the lifelong requirement of nutritional supplementation and adherence to an exercise regimen as well as importance of dietary f/u Patient was educated on the replacement products called optifast. This is a good way of taking fixed amount of calories. It has been shown in studies to be ineffective weight management tool. We also recommend maintaining adequate protein intake and muscle composition, 1.5mg/kg This however has to be coupled with lifestyle intervention as well as laboratory data and EKG monitoring. It is impossible to know how a person will tolerate complete meal replacement. The side effects of meal replacement and weight loss could include syncopal attacks, dizziness, gallstones, potential cholecystectomy, possible heart attack and even . The benefits of meal replacement would be potential weight loss but no guarantees can be made. Meal replacement products are not covered by insurance. Once the patient has bought these products we cannot return them B. Lifestyle management which includes several strategies as below 1. Eat a low carbohydrate good fat good protein diet. Eliminate refined carbohydrates from the diet. Continue blood sugar and sugared beverages. Eat local organic when possible. Cook your own meals. Read food labels. None about healthy snacks. Portion control and food with low glycemic index 2. Exercise regularly. Try to get at least 6000 steps a day. Use a predominant to track activity level. Consider using apps like 7 mionute excercise, myfitnesspal, lose it, stick as needed for self-monitoring and weight management. Consider group exercises. Consider hiring a six sigma black trainer. Regular exercise is schaefer to sustainable health and prevents as a buffer against weight regain 3. Sleep is most important for healing. Tried to sleep at least 8 hours a night. A good quality sleep needs a sleep ritual with ideal room temperature of around 68. It might help to take a shower and have no electronics in the room and sleep in a very dark room without artificial light. Start her sleep routine and get up early in the morning and go to bed on time 4. Make a social connection. Surround yourself with positive people with positive energy. Connect with friends and family. 5. Get into the habit of meditating and mindfulness while doing everything. 6. Go outside and connect with nature. C. Prescription medications Patient was educated on the use of prescription medications for medical weight loss. This is a growing list and includes phentermine, Topamax,Qsymia, contrave, belviq and saxenda, wegovy All prescription medications could have side effects including but not limited to kidney stones, seizure disorder cardiac arrhythmias heart attack pancreatitis etc. etc.. Patient was encouraged to read the prescription insert and have coaching with their pharmacist and make an informed decision about taking medication and know that these medications are being prescribed with good intentions and we do not know how a patient would react to her medication. Sudden medications are FDA approved for weight loss and there is also off label use depending on patient's inability to afford medications in an attempt to lose weight D. Behavioral counseling was done to establish a relationship between food and an mood. Patient was provided information about local counseling and psychiatry and Dr Morton at [facility]. We would like to cover regular topics and build on low glycemic eating exercise mindful eating, using yoga and meditation along with deep breathing and connecting with friends and family. E. MASS PAT reviewed, Patient's current medications were reviewed and opinion was given on medication that can cause weight gain and can be substituted F. Patient was assessed for risk with obesity including and not limiting to atherosclerosis heart disease stroke kidney disease, restrictive lung disease, irritable bowel syndrome and overall mortality. Risk of developing prediabetes diabetes and metabolic syndrome was discussed G. Therapeutic plan: We have decided to make therapeutic plan which would include choosing wisely on calories restricting portion getting active, tracking weight, getting good quality sleep and working on time management H. Patient will follow up in (4) weeks for weight management Of note, some information is being carried forward from prior records for informational purposes only and is being cited so that efficiency, safety and quality of the patient's care is not compromised This note was prepared using voice recognition software and direct typing Please excuse inadvertent salvage winder or typing errors, or uncorrected word substitutions Although every attempt has been made by the provider to proofread this document, occasional misspellings and typographical errors may still be present Due to the previous pandemic, and the use of personal protective equipment (PPE) This may decrease voice recognition accuracy Inadvertent salvage winder errors may occur 10/25/2023 Other obesity due to excess calories (ICD-10 - E66.09) Patient will be started on compounded semaglutide program today discussed cost and and risks associated with this Plan is to transition to tradename Paws for LifececeAllurent after a determined length of time Total time spent today was 60 minutes of which greater than 50% was spent on coordinating and counseling Patient has been found to be obese with a BMI of (30). Patient has class (1) obesity. We are a board certified obesity and weight management practice Patient has trialed behavioral modification, dietary restrictions and exercise for a minimum of 6 months The most recent [place] [employer] of clinical endocrinologists and [place] [employer] guidelines recommend patients who have overweight BMI or obesity BMI, who also have metabolic syndrome, prediabetes, HLD, and other comorbidities or at risk of developing type 2 diabetes should aim for a weight loss goal of at least 10% of the baseline body weight Patient counseled regarding effects of GLP/GIP-1 agonists, and other FDA approved wgt loss meds with regards to a multifactorial approach of weight loss as mentioned above and not solely appetite suppression. We have discussed the mechanism of GLP-1's/GIP, dual incretins I think this would be fantastic option for her given her metabolic workup and body composition We have discussed the risks and benefits and side effects including/and not limited to Sarcopenia, intestinal obstruction, constipation, nausea, lethargy, headache Discussed importance of protein consumption for muscle maintenance as well as strength and resistance training ,probiotics, B12 complex biotin , iron and other nutrients, To help avoid telogen effluvium There is no history of medullary thyroid cancer or multiple endocrine neoplasia There is also no history of cardiovascular disease, hypertension, palpitations, or arrhythmias In the setting of potential stimulant/amphetami ne use such as phentermine We have also discussed risks and benefits, and the use of compounded medications to help offset the national shortages as well as financial implications vs trade name drugs GLP must be discontinued upon initiation We have discussed the lifelong requirement of nutritional supplementation And adherence to an exercise regimen as well as importance of follow-up The patient understands and agrees Patient was reassured and welcomed to the practice. We discussed that we stress a hollistic medical approach with emphasis on lifestyle modification. Patient was informed that a healthy lifestyle with exercise and good eating habits can help reduce his risk of medical complications. He is explained that obesity increases his risk of diabetes, cardiovascular disease, or organ damage. We spent a lot of time discussing the relationship between food, exercise, sleep, mental health and obesity. Patient was counseled on the importance EATING local, organic food when possible. Patient was educated on clean 15 and dirty dozen. I provided information about reading books called The Food Rules by Sergio Lees and Eat Fat Get Lean by Dr Aj Cox. Self education is important in the journey for weight management. Patient was offered diagnostic testing. We want to measure visceral adiposity, advanced body composition, adverse lipids, fatty acid balance, risk for heart disease and atherosclerosis, markers of inflammation and genetic susceptibility. Patient was counseled on weight management and was advised to lose weight using A. Meal Replacement Products We discussed the lifelong requirement of nutritional supplementation and adherence to an exercise regimen as well as importance of dietary f/u Patient was educated on the replacement products called optifast. This is a good way of taking fixed amount of calories. It has been shown in studies to be ineffective weight management tool. We also recommend maintaining adequate protein intake and muscle composition, 1.5mg/kg This however has to be coupled with lifestyle intervention as well as laboratory data and EKG monitoring. It is impossible to know how a person will tolerate complete meal replacement. The side effects of meal replacement and weight loss could include syncopal attacks, dizziness, gallstones, potential cholecystectomy, possible heart attack and even . The benefits of meal replacement would be potential weight loss but no guarantees can be made. Meal replacement products are not covered by insurance. Once the patient has bought these products we cannot return them B. Lifestyle management which includes several strategies as below 1. Eat a low carbohydrate good fat good protein diet. Eliminate refined carbohydrates from the diet. Continue blood sugar and sugared beverages. Eat local organic when possible. Cook your own meals. Read food labels. None about healthy snacks. Portion control and food with low glycemic index 2. Exercise regularly. Try to get at least 6000 steps a day. Use a predominant to track activity level. Consider using apps like SeeYourImpact.org, [employer], lose it, stick as needed for self-monitoring and weight management. Consider group exercises. Consider hiring a six sigma black trainer. Regular exercise is schaefer to sustainable health and prevents as a buffer against weight regain 3. Sleep is most important for healing. Tried to sleep at least 8 hours a night. A good quality sleep needs a sleep ritual with ideal room temperature of around 68. It might help to take a shower and have no electronics in the room and sleep in a very dark room without artificial light. Start her sleep routine and get up early in the morning and go to bed on time 4. Make a social connection. Surround yourself with positive people with positive energy. Connect with friends and family. 5. Get into the habit of meditating and mindfulness while doing everything. 6. Go outside and connect with nature. C. Prescription medications Patient was educated on the use of prescription medications for medical weight loss. This is a growing list and includes phentermine, Topamax,Qsymia, contrave, belviq and saxenda, wegovy All prescription medications could have side effects including but not limited to kidney stones, seizure disorder cardiac arrhythmias heart attack pancreatitis etc. etc.. Patient was encouraged to read the prescription insert and have coaching with their pharmacist and make an informed decision about taking medication and know that these medications are being prescribed with good intentions and we do not know how a patient would react to her medication. Sudden medications are FDA approved for weight loss and there is also off label use depending on patient's inability to afford medications in an attempt to lose weight D. Behavioral counseling was done to establish a relationship between food and an mood. Patient was provided information about local counseling and psychiatry and Dr Morton at [facility]. We would like to cover regular topics and build on low glycemic eating exercise mindful eating, using yoga and meditation along with deep breathing and connecting with friends and family. E. MASS PAT reviewed, Patient's current medications were reviewed and opinion was given on medication that can cause weight gain and can be substituted F. Patient was assessed for risk with obesity including and not limiting to atherosclerosis heart disease stroke kidney disease, restrictive lung disease, irritable bowel syndrome and overall mortality. Risk of developing prediabetes diabetes and metabolic syndrome was discussed G. Therapeutic plan: We have decided to make therapeutic plan which would include choosing wisely on calories restricting portion getting active, tracking weight, getting good quality sleep and working on time management H. Patient will follow up in (4) weeks for weight management Of note, some information is being carried forward from prior records for informational purposes only and is being cited so that efficiency, safety and quality of the patient's care is not compromised This note was prepared using voice recognition software and direct typing Please excuse inadvertent salvage winder or typing errors, or uncorrected word substitutions Although every attempt has been made by the provider to proofread this document, occasional misspellings and typographical errors may still be present Due to the previous pandemic, and the use of personal protective equipment (PPE) This may decrease voice recognition accuracy Inadvertent salvage winder errors may occur 10/25/2023 Anxiety disorder, unspecified (ICD-10 - F41.9) Patient will be started on compounded semaglutide program today discussed cost and and risks associated with this Plan is to transition to tradename [employer] after a determined length of time Total time spent today was 60 minutes of which greater than 50% was spent on coordinating and counseling Patient has been found to be obese with a BMI of (30). Patient has class (1) obesity. We are a board certified obesity and weight management practice Patient has trialed behavioral modification, dietary restrictions and exercise for a minimum of 6 months The most recent [place] [employer] clinical endocrinologists and [place] [employer] guidelines recommend patients who have overweight BMI or obesity BMI, who also have metabolic syndrome, prediabetes, HLD, and other comorbidities or at risk of developing type 2 diabetes should aim for a weight loss goal of at least 10% of the baseline body weight Patient counseled regarding effects of GLP/GIP-1 agonists, and other FDA approved wgt loss meds with regards to a multifactorial approach of weight loss as mentioned above and not solely appetite suppression. We have discussed the mechanism of GLP-1's/GIP, dual incretins I think this would be fantastic option for her given her metabolic workup and body composition We have discussed the risks and benefits and side effects including/and not limited to Sarcopenia, intestinal obstruction, constipation, nausea, lethargy, headache Discussed importance of protein consumption for muscle maintenance as well as strength and resistance training ,probiotics, B12 complex biotin , iron and other nutrients, To help avoid telogen effluvium There is no history of medullary thyroid cancer or multiple endocrine neoplasia There is also no history of cardiovascular disease, hypertension, palpitations, or arrhythmias In the setting of potential stimulant/amphetami ne use such as phentermine We have also discussed risks and benefits, and the use of compounded medications to help offset the national shortages as well as financial implications vs trade name drugs GLP must be discontinued upon initiation We have discussed the lifelong requirement of nutritional supplementation And adherence to an exercise regimen as well as importance of follow-up The patient understands and agrees Patient was reassured and welcomed to the practice. We discussed that we stress a hollistic medical approach with emphasis on lifestyle modification. Patient was informed that a healthy lifestyle with exercise and good eating habits can help reduce his risk of medical complications. He is explained that obesity increases his risk of diabetes, cardiovascular disease, or organ damage. We spent a lot of time discussing the relationship between food, exercise, sleep, mental health and obesity. Patient was counseled on the importance EATING local, organic food when possible. Patient was educated on clean 15 and dirty dozen. I provided information about reading books called The Food Rules by Sergio Lees and Eat Fat Get Lean by Dr Aj Cox. Self education is important in the journey for weight management. Patient was offered diagnostic testing. We want to measure visceral adiposity, advanced body composition, adverse lipids, fatty acid balance, risk for heart disease and atherosclerosis, markers of inflammation and genetic susceptibility. Patient was counseled on weight management and was advised to lose weight using A. Meal Replacement Products We discussed the lifelong requirement of nutritional supplementation and adherence to an exercise regimen as well as importance of dietary f/u Patient was educated on the replacement products called optifast. This is a good way of taking fixed amount of calories. It has been shown in studies to be ineffective weight management tool. We also recommend maintaining adequate protein intake and muscle composition, 1.5mg/kg This however has to be coupled with lifestyle intervention as well as laboratory data and EKG monitoring. It is impossible to know how a person will tolerate complete meal replacement. The side effects of meal replacement and weight loss could include syncopal attacks, dizziness, gallstones, potential cholecystectomy, possible heart attack and even . The benefits of meal replacement would be potential weight loss but no guarantees can be made. Meal replacement products are not covered by insurance. Once the patient has bought these products we cannot return them B. Lifestyle management which includes several strategies as below 1. Eat a low carbohydrate good fat good protein diet. Eliminate refined carbohydrates from the diet. Continue blood sugar and sugared beverages. Eat local organic when possible. Cook your own meals. Read food labels. None about healthy snacks. Portion control and food with low glycemic index 2. Exercise regularly. Try to get at least 6000 steps a day. Use a predominant to track activity level. Consider using apps like SeeYourImpact.org, [employer], lose it, stick as needed for self-monitoring and weight management. Consider group exercises. Consider hiring a six sigma black trainer. Regular exercise is schaefer to sustainable health and prevents as a buffer against weight regain 3. Sleep is most important for healing. Tried to sleep at least 8 hours a night. A good quality sleep needs a sleep ritual with ideal room temperature of around 68. It might help to take a shower and have no electronics in the room and sleep in a very dark room without artificial light. Start her sleep routine and get up early in the morning and go to bed on time 4. Make a social connection. Surround yourself with positive people with positive energy. Connect with friends and family. 5. Get into the habit of meditating and mindfulness while doing everything. 6. Go outside and connect with nature. C. Prescription medications Patient was educated on the use of prescription medications for medical weight loss. This is a growing list and includes phentermine, Topamax,Qsymia, contrave, belviq and saxenda, wegovy All prescription medications could have side effects including but not limited to kidney stones, seizure disorder cardiac arrhythmias heart attack pancreatitis etc. etc.. Patient was encouraged to read the prescription insert and have coaching with their pharmacist and make an informed decision about taking medication and know that these medications are being prescribed with good intentions and we do not know how a patient would react to her medication. Sudden medications are FDA approved for weight loss and there is also off label use depending on patient's inability to afford medications in an attempt to lose weight D. Behavioral counseling was done to establish a relationship between food and an mood. Patient was provided information about local counseling and psychiatry and Dr Morton at [facility]. We would like to cover regular topics and build on low glycemic eating exercise mindful eating, using yoga and meditation along with deep breathing and connecting with friends and family. E. MASS PAT reviewed, Patient's current medications were reviewed and opinion was given on medication that can cause weight gain and can be substituted F. Patient was assessed for risk with obesity including and not limiting to atherosclerosis heart disease stroke kidney disease, restrictive lung disease, irritable bowel syndrome and overall mortality. Risk of developing prediabetes diabetes and metabolic syndrome was discussed G. Therapeutic plan: We have decided to make therapeutic plan which would include choosing wisely on calories restricting portion getting active, tracking weight, getting good quality sleep and working on time management H. Patient will follow up in (4) weeks for weight management Of note, some information is being carried forward from prior records for informational purposes only and is being cited so that efficiency, safety and quality of the patient's care is not compromised This note was prepared using voice recognition software and direct typing Please excuse inadvertent salvage winder or typing errors, or uncorrected word substitutions Although every attempt has been made by the provider to proofread this document, occasional misspellings and typographical errors may still be present Due to the previous pandemic, and the use of personal protective equipment (PPE) This may decrease voice recognition accuracy Inadvertent salvage winder errors may occur 12/07/2023 Body mass index [BMI] 30.0-30.9, adult (ICD-10 - Z68.30) Will get a 0.5 mg semaglutide compounded here today, third week Plan is to transition to tradename Wegovy 1 mg Starting in 1 week Total time spent today was 30 minutes of which greater than 50% was spent on coordinating and counseling Patient has been found to be obese with a BMI of (30). Patient has class (1) obesity. We are a board certified obesity and weight management practice Patient has trialed behavioral modification, dietary restrictions and exercise for a minimum of 6 months The most recent [place] [employer] of clinical endocrinologists and [place] [employer] guidelines recommend patients who have overweight BMI or obesity BMI, who also have metabolic syndrome, prediabetes, HLD, and other comorbidities or at risk of developing type 2 diabetes should aim for a weight loss goal of at least 10% of the baseline body weight Patient counseled regarding effects of GLP/GIP-1 agonists, and other FDA approved wgt loss meds with regards to a multifactorial approach of weight loss as mentioned above and not solely appetite suppression. We have discussed the mechanism of GLP-1's/GIP, dual incretins I think this would be fantastic option for her given her metabolic workup and body composition We have discussed the risks and benefits and side effects including/and not limited to Sarcopenia, intestinal obstruction, constipation, nausea, lethargy, headache Discussed importance of protein consumption for muscle maintenance as well as strength and resistance training ,probiotics, B12 complex biotin , iron and other nutrients, To help avoid telogen effluvium There is no history of medullary thyroid cancer or multiple endocrine neoplasia There is also no history of cardiovascular disease, hypertension, palpitations, or arrhythmias In the setting of potential stimulant/amphetami ne use such as phentermine We have also discussed risks and benefits, and the use of compounded medications to help offset the national shortages as well as financial implications vs trade name drugs GLP must be discontinued upon initiation We have discussed the lifelong requirement of nutritional supplementation And adherence to an exercise regimen as well as importance of follow-up The patient understands and agrees Patient was reassured and welcomed to the practice. We discussed that we stress a hollistic medical approach with emphasis on lifestyle modification. Patient was informed that a healthy lifestyle with exercise and good eating habits can help reduce his risk of medical complications. He is explained that obesity increases his risk of diabetes, cardiovascular disease, or organ damage. We spent a lot of time discussing the relationship between food, exercise, sleep, mental health and obesity. Patient was counseled on the importance EATING local, organic food when possible. Patient was educated on clean 15 and dirty dozen. I provided information about reading books called The Food Rules by Sergio Lees and Eat Fat Get Lean by Dr Aj Cox. Self education is important in the journey for weight management. Patient was offered diagnostic testing. We want to measure visceral adiposity, advanced body composition, adverse lipids, fatty acid balance, risk for heart disease and atherosclerosis, markers of inflammation and genetic susceptibility. Patient was counseled on weight management and was advised to lose weight using A. Meal Replacement Products We discussed the lifelong requirement of nutritional supplementation and adherence to an exercise regimen as well as importance of dietary f/u Patient was educated on the replacement products called optifast. This is a good way of taking fixed amount of calories. It has been shown in studies to be ineffective weight management tool. We also recommend maintaining adequate protein intake and muscle composition, 1.5mg/kg This however has to be coupled with lifestyle intervention as well as laboratory data and EKG monitoring. It is impossible to know how a person will tolerate complete meal replacement. The side effects of meal replacement and weight loss could include syncopal attacks, dizziness, gallstones, potential cholecystectomy, possible heart attack and even . The benefits of meal replacement would be potential weight loss but no guarantees can be made. Meal replacement products are not covered by insurance. Once the patient has bought these products we cannot return them B. Lifestyle management which includes several strategies as below 1. Eat a low carbohydrate good fat good protein diet. Eliminate refined carbohydrates from the diet. Continue blood sugar and sugared beverages. Eat local organic when possible. Cook your own meals. Read food labels. None about healthy snacks. Portion control and food with low glycemic index 2. Exercise regularly. Try to get at least 6000 steps a day. Use a predominant to track activity level. Consider using apps like SeeYourImpact.org, [employer], lose it, stick as needed for self-monitoring and weight management. Consider group exercises. Consider hiring a six sigma black trainer. Regular exercise is schaefer to sustainable health and prevents as a buffer against weight regain 3. Sleep is most important for healing. Tried to sleep at least 8 hours a night. A good quality sleep needs a sleep ritual with ideal room temperature of around 68. It might help to take a shower and have no electronics in the room and sleep in a very dark room without artificial light. Start her sleep routine and get up early in the morning and go to bed on time 4. Make a social connection. Surround yourself with positive people with positive energy. Connect with friends and family. 5. Get into the habit of meditating and mindfulness while doing everything. 6. Go outside and connect with nature. C. Prescription medications Patient was educated on the use of prescription medications for medical weight loss. This is a growing list and includes phentermine, Topamax,Qsymia, contrave, belviq and saxenda, wegovy All prescription medications could have side effects including but not limited to kidney stones, seizure disorder cardiac arrhythmias heart attack pancreatitis etc. etc.. Patient was encouraged to read the prescription insert and have coaching with their pharmacist and make an informed decision about taking medication and know that these medications are being prescribed with good intentions and we do not know how a patient would react to her medication. Sudden medications are FDA approved for weight loss and there is also off label use depending on patient's inability to afford medications in an attempt to lose weight D. Behavioral counseling was done to establish a relationship between food and an mood. Patient was provided information about local counseling and psychiatry and Dr Morton at [facility]. We would like to cover regular topics and build on low glycemic eating exercise mindful eating, using yoga and meditation along with deep breathing and connecting with friends and family. E. MASS PAT reviewed, Patient's current medications were reviewed and opinion was given on medication that can cause weight gain and can be substituted F. Patient was assessed for risk with obesity including and not limiting to atherosclerosis heart disease stroke kidney disease, restrictive lung disease, irritable bowel syndrome and overall mortality. Risk of developing prediabetes diabetes and metabolic syndrome was discussed G. Therapeutic plan: We have decided to make therapeutic plan which would include choosing wisely on calories restricting portion getting active, tracking weight, getting good quality sleep and working on time management H. Patient will follow up in (4) weeks for weight management Of note, some information is being carried forward from prior records for informational purposes only and is being cited so that efficiency, safety and quality of the patient's care is not compromised This note was prepared using voice recognition software and direct typing Please excuse inadvertent salvage winder or typing errors, or uncorrected word substitutions Although every attempt has been made by the provider to proofread this document, occasional misspellings and typographical errors may still be present Due to the previous pandemic, and the use of personal protective equipment (PPE) This may decrease voice recognition accuracy Inadvertent salvage winder errors may occur 10/25/2023 Depression, unspecified (ICD-10 - F32.A) Patient will be started on compounded semaglutide program today discussed cost and and risks associated with this Plan is to transition to tradename [facility] after a determined length of time Total time spent today was 60 minutes of which greater than 50% was spent on coordinating and counseling Patient has been found to be obese with a BMI of (30). Patient has class (1) obesity. We are a board certified obesity and weight management practice Patient has trialed behavioral modification, dietary restrictions and exercise for a minimum of 6 months The most recent [place] [employer] clinical endocrinologists and [place] [employer] guidelines recommend patients who have overweight BMI or obesity BMI, who also have metabolic syndrome, prediabetes, HLD, and other comorbidities or at risk of developing type 2 diabetes should aim for a weight loss goal of at least 10% of the baseline body weight Patient counseled regarding effects of GLP/GIP-1 agonists, and other FDA approved wgt loss meds with regards to a multifactorial approach of weight loss as mentioned above and not solely appetite suppression. We have discussed the mechanism of GLP-1's/GIP, dual incretins I think this would be fantastic option for her given her metabolic workup and body composition We have discussed the risks and benefits and side effects including/and not limited to Sarcopenia, intestinal obstruction, constipation, nausea, lethargy, headache Discussed importance of protein consumption for muscle maintenance as well as strength and resistance training ,probiotics, B12 complex biotin , iron and other nutrients, To help avoid telogen effluvium There is no history of medullary thyroid cancer or multiple endocrine neoplasia There is also no history of cardiovascular disease, hypertension, palpitations, or arrhythmias In the setting of potential stimulant/amphetami ne use such as phentermine We have also discussed risks and benefits, and the use of compounded medications to help offset the national shortages as well as financial implications vs trade name drugs GLP must be discontinued upon initiation We have discussed the lifelong requirement of nutritional supplementation And adherence to an exercise regimen as well as importance of follow-up The patient understands and agrees Patient was reassured and welcomed to the practice. We discussed that we stress a hollistic medical approach with emphasis on lifestyle modification. Patient was informed that a healthy lifestyle with exercise and good eating habits can help reduce his risk of medical complications. He is explained that obesity increases his risk of diabetes, cardiovascular disease, or organ damage. We spent a lot of time discussing the relationship between food, exercise, sleep, mental health and obesity. Patient was counseled on the importance EATING local, organic food when possible. Patient was educated on clean 15 and dirty dozen. I provided information about reading books called The Food Rules by Sergio Lees and Eat Fat Get Lean by Dr Aj Cox. Self education is important in the journey for weight management. Patient was offered diagnostic testing. We want to measure visceral adiposity, advanced body composition, adverse lipids, fatty acid balance, risk for heart disease and atherosclerosis, markers of inflammation and genetic susceptibility. Patient was counseled on weight management and was advised to lose weight using A. Meal Replacement Products We discussed the lifelong requirement of nutritional supplementation and adherence to an exercise regimen as well as importance of dietary f/u Patient was educated on the replacement products called optifast. This is a good way of taking fixed amount of calories. It has been shown in studies to be ineffective weight management tool. We also recommend maintaining adequate protein intake and muscle composition, 1.5mg/kg This however has to be coupled with lifestyle intervention as well as laboratory data and EKG monitoring. It is impossible to know how a person will tolerate complete meal replacement. The side effects of meal replacement and weight loss could include syncopal attacks, dizziness, gallstones, potential cholecystectomy, possible heart attack and even . The benefits of meal replacement would be potential weight loss but no guarantees can be made. Meal replacement products are not covered by insurance. Once the patient has bought these products we cannot return them B. Lifestyle management which includes several strategies as below 1. Eat a low carbohydrate good fat good protein diet. Eliminate refined carbohydrates from the diet. Continue blood sugar and sugared beverages. Eat local organic when possible. Cook your own meals. Read food labels. None about healthy snacks. Portion control and food with low glycemic index 2. Exercise regularly. Try to get at least 6000 steps a day. Use a predominant to track activity level. Consider using apps like SeeYourImpact.org, myfitnesspal, lose it, stick as needed for self-monitoring and weight management. Consider group exercises. Consider hiring a six sigma black trainer. Regular exercise is schaefer to sustainable health and prevents as a buffer against weight regain 3. Sleep is most important for healing. Tried to sleep at least 8 hours a night. A good quality sleep needs a sleep ritual with ideal room temperature of around 68. It might help to take a shower and have no electronics in the room and sleep in a very dark room without artificial light. Start her sleep routine and get up early in the morning and go to bed on time 4. Make a social connection. Surround yourself with positive people with positive energy. Connect with friends and family. 5. Get into the habit of meditating and mindfulness while doing everything. 6. Go outside and connect with nature. C. Prescription medications Patient was educated on the use of prescription medications for medical weight loss. This is a growing list and includes phentermine, Topamax,Qsymia, contrave, belviq and saxenda, wegovy All prescription medications could have side effects including but not limited to kidney stones, seizure disorder cardiac arrhythmias heart attack pancreatitis etc. etc.. Patient was encouraged to read the prescription insert and have coaching with their pharmacist and make an informed decision about taking medication and know that these medications are being prescribed with good intentions and we do not know how a patient would react to her medication. Sudden medications are FDA approved for weight loss and there is also off label use depending on patient's inability to afford medications in an attempt to lose weight D. Behavioral counseling was done to establish a relationship between food and an mood. Patient was provided information about local counseling and psychiatry and Dr Morton at [facility]. We would like to cover regular topics and build on low glycemic eating exercise mindful eating, using yoga and meditation along with deep breathing and connecting with friends and family. E. MASS PAT reviewed, Patient's current medications were reviewed and opinion was given on medication that can cause weight gain and can be substituted F. Patient was assessed for risk with obesity including and not limiting to atherosclerosis heart disease stroke kidney disease, restrictive lung disease, irritable bowel syndrome and overall mortality. Risk of developing prediabetes diabetes and metabolic syndrome was discussed G. Therapeutic plan: We have decided to make therapeutic plan which would include choosing wisely on calories restricting portion getting active, tracking weight, getting good quality sleep and working on time management H. Patient will follow up in (4) weeks for weight management Of note, some information is being carried forward from prior records for informational purposes only and is being cited so that efficiency, safety and quality of the patient's care is not compromised This note was prepared using voice recognition software and direct typing Please excuse inadvertent salvage winder or typing errors, or uncorrected word substitutions Although every attempt has been made by the provider to proofread this document, occasional misspellings and typographical errors may still be present Due to the previous pandemic, and the use of personal protective equipment (PPE) This may decrease voice recognition accuracy Inadvertent salvage winder errors may occur 12/07/2023 Anxiety disorder, unspecified (ICD-10 - F41.9) Will get a 0.5 mg semaglutide compounded here today, third week Plan is to transition to tradename N[place]umgovy 1 mg Starting in 1 week Total time spent today was 30 minutes of which greater than 50% was spent on coordinating and counseling Patient has been found to be obese with a BMI of (30). Patient has class (1) obesity. We are a board certified obesity and weight management practice Patient has trialed behavioral modification, dietary restrictions and exercise for a minimum of 6 months The most recent [place] [employer]ocrin[employer] and [place] [employer] guidelines recommend patients who have overweight BMI or obesity BMI, who also have metabolic syndrome, prediabetes, HLD, and other comorbidities or at risk of developing type 2 diabetes should aim for a weight loss goal of at least 10% of the baseline body weight Patient counseled regarding effects of GLP/GIP-1 agonists, and other FDA approved wgt loss meds with regards to a multifactorial approach of weight loss as mentioned above and not solely appetite suppression. We have discussed the mechanism of GLP-1's/GIP, dual incretins I think this would be fantastic option for her given her metabolic workup and body composition We have discussed the risks and benefits and side effects including/and not limited to Sarcopenia, intestinal obstruction, constipation, nausea, lethargy, headache Discussed importance of protein consumption for muscle maintenance as well as strength and resistance training ,probiotics, B12 complex biotin , iron and other nutrients, To help avoid telogen effluvium There is no history of medullary thyroid cancer or multiple endocrine neoplasia There is also no history of cardiovascular disease, hypertension, palpitations, or arrhythmias In the setting of potential stimulant/amphetami ne use such as phentermine We have also discussed risks and benefits, and the use of compounded medications to help offset the national shortages as well as financial implications vs trade name drugs GLP must be discontinued upon initiation We have discussed the lifelong requirement of nutritional supplementation And adherence to an exercise regimen as well as importance of follow-up The patient understands and agrees Patient was reassured and welcomed to the practice. We discussed that we stress a hollistic medical approach with emphasis on lifestyle modification. Patient was informed that a healthy lifestyle with exercise and good eating habits can help reduce his risk of medical complications. He is explained that obesity increases his risk of diabetes, cardiovascular disease, or organ damage. We spent a lot of time discussing the relationship between food, exercise, sleep, mental health and obesity. Patient was counseled on the importance EATING local, organic food when possible. Patient was educated on clean 15 and dirty dozen. I provided information about reading books called The Food Rules by Sergio Lees and Eat Fat Get Lean by Dr Aj Cox. Self education is important in the journey for weight management. Patient was offered diagnostic testing. We want to measure visceral adiposity, advanced body composition, adverse lipids, fatty acid balance, risk for heart disease and atherosclerosis, markers of inflammation and genetic susceptibility. Patient was counseled on weight management and was advised to lose weight using A. Meal Replacement Products We discussed the lifelong requirement of nutritional supplementation and adherence to an exercise regimen as well as importance of dietary f/u Patient was educated on the replacement products called optifast. This is a good way of taking fixed amount of calories. It has been shown in studies to be ineffective weight management tool. We also recommend maintaining adequate protein intake and muscle composition, 1.5mg/kg This however has to be coupled with lifestyle intervention as well as laboratory data and EKG monitoring. It is impossible to know how a person will tolerate complete meal replacement. The side effects of meal replacement and weight loss could include syncopal attacks, dizziness, gallstones, potential cholecystectomy, possible heart attack and even . The benefits of meal replacement would be potential weight loss but no guarantees can be made. Meal replacement products are not covered by insurance. Once the patient has bought these products we cannot return them B. Lifestyle management which includes several strategies as below 1. Eat a low carbohydrate good fat good protein diet. Eliminate refined carbohydrates from the diet. Continue blood sugar and sugared beverages. Eat local organic when possible. Cook your own meals. Read food labels. None about healthy snacks. Portion control and food with low glycemic index 2. Exercise regularly. Try to get at least 6000 steps a day. Use a predominant to track activity level. Consider using apps like SeeYourImpact.org, myfitnesspal, lose it, stick as needed for self-monitoring and weight management. Consider group exercises. Consider hiring a six sigma black trainer. Regular exercise is schaefer to sustainable health and prevents as a buffer against weight regain 3. Sleep is most important for healing. Tried to sleep at least 8 hours a night. A good quality sleep needs a sleep ritual with ideal room temperature of around 68. It might help to take a shower and have no electronics in the room and sleep in a very dark room without artificial light. Start her sleep routine and get up early in the morning and go to bed on time 4. Make a social connection. Surround yourself with positive people with positive energy. Connect with friends and family. 5. Get into the habit of meditating and mindfulness while doing everything. 6. Go outside and connect with nature. C. Prescription medications Patient was educated on the use of prescription medications for medical weight loss. This is a growing list and includes phentermine, Topamax,Qsymia, contrave, belviq and saxenda, wegovy All prescription medications could have side effects including but not limited to kidney stones, seizure disorder cardiac arrhythmias heart attack pancreatitis etc. etc.. Patient was encouraged to read the prescription insert and have coaching with their pharmacist and make an informed decision about taking medication and know that these medications are being prescribed with good intentions and we do not know how a patient would react to her medication. Sudden medications are FDA approved for weight loss and there is also off label use depending on patient's inability to afford medications in an attempt to lose weight D. Behavioral counseling was done to establish a relationship between food and an mood. Patient was provided information about local counseling and psychiatry and Dr Morton at [facility]. We would like to cover regular topics and build on low glycemic eating exercise mindful eating, using yoga and meditation along with deep breathing and connecting with friends and family. E. MASS PAT reviewed, Patient's current medications were reviewed and opinion was given on medication that can cause weight gain and can be substituted F. Patient was assessed for risk with obesity including and not limiting to atherosclerosis heart disease stroke kidney disease, restrictive lung disease, irritable bowel syndrome and overall mortality. Risk of developing prediabetes diabetes and metabolic syndrome was discussed G. Therapeutic plan: We have decided to make therapeutic plan which would include choosing wisely on calories restricting portion getting active, tracking weight, getting good quality sleep and working on time management H. Patient will follow up in (4) weeks for weight management Of note, some information is being carried forward from prior records for informational purposes only and is being cited so that efficiency, safety and quality of the patient's care is not compromised This note was prepared using voice recognition software and direct typing Please excuse inadvertent salvage winder or typing errors, or uncorrected word substitutions Although every attempt has been made by the provider to proofread this document, occasional misspellings and typographical errors may still be present Due to the previous pandemic, and the use of personal protective equipment (PPE) This may decrease voice recognition accuracy Inadvertent salvage winder errors may occur 12/07/2023 Depression, unspecified (ICD-10 - F32.A) Will get a 0.5 mg semaglutide compounded here today, third week Plan is to transition to tradename Leevy 1 mg Starting in 1 week Total time spent today was 30 minutes of which greater than 50% was spent on coordinating and counseling Patient has been found to be obese with a BMI of (30). Patient has class (1) obesity. We are a board certified obesity and weight management practice Patient has trialed behavioral modification, dietary restrictions and exercise for a minimum of 6 months The most recent [place] [employer]ocrinologists and [place] [employer] guidelines recommend patients who have overweight BMI or obesity BMI, who also have metabolic syndrome, prediabetes, HLD, and other comorbidities or at risk of developing type 2 diabetes should aim for a weight loss goal of at least 10% of the baseline body weight Patient counseled regarding effects of GLP/GIP-1 agonists, and other FDA approved wgt loss meds with regards to a multifactorial approach of weight loss as mentioned above and not solely appetite suppression. We have discussed the mechanism of GLP-1's/GIP, dual incretins I think this would be fantastic option for her given her metabolic workup and body composition We have discussed the risks and benefits and side effects including/and not limited to Sarcopenia, intestinal obstruction, constipation, nausea, lethargy, headache Discussed importance of protein consumption for muscle maintenance as well as strength and resistance training ,probiotics, B12 complex biotin , iron and other nutrients, To help avoid telogen effluvium There is no history of medullary thyroid cancer or multiple endocrine neoplasia There is also no history of cardiovascular disease, hypertension, palpitations, or arrhythmias In the setting of potential stimulant/amphetami ne use such as phentermine We have also discussed risks and benefits, and the use of compounded medications to help offset the national shortages as well as financial implications vs trade name drugs GLP must be discontinued upon initiation We have discussed the lifelong requirement of nutritional supplementation And adherence to an exercise regimen as well as importance of follow-up The patient understands and agrees Patient was reassured and welcomed to the practice. We discussed that we stress a hollistic medical approach with emphasis on lifestyle modification. Patient was informed that a healthy lifestyle with exercise and good eating habits can help reduce his risk of medical complications. He is explained that obesity increases his risk of diabetes, cardiovascular disease, or organ damage. We spent a lot of time discussing the relationship between food, exercise, sleep, mental health and obesity. Patient was counseled on the importance EATING local, organic food when possible. Patient was educated on clean 15 and dirty dozen. I provided information about reading books called The Food Rules by Sergio Lees and Eat Fat Get Lean by Dr Aj Cox. Self education is important in the journey for weight management. Patient was offered diagnostic testing. We want to measure visceral adiposity, advanced body composition, adverse lipids, fatty acid balance, risk for heart disease and atherosclerosis, markers of inflammation and genetic susceptibility. Patient was counseled on weight management and was advised to lose weight using A. Meal Replacement Products We discussed the lifelong requirement of nutritional supplementation and adherence to an exercise regimen as well as importance of dietary f/u Patient was educated on the replacement products called optifast. This is a good way of taking fixed amount of calories. It has been shown in studies to be ineffective weight management tool. We also recommend maintaining adequate protein intake and muscle composition, 1.5mg/kg This however has to be coupled with lifestyle intervention as well as laboratory data and EKG monitoring. It is impossible to know how a person will tolerate complete meal replacement. The side effects of meal replacement and weight loss could include syncopal attacks, dizziness, gallstones, potential cholecystectomy, possible heart attack and even . The benefits of meal replacement would be potential weight loss but no guarantees can be made. Meal replacement products are not covered by insurance. Once the patient has bought these products we cannot return them B. Lifestyle management which includes several strategies as below 1. Eat a low carbohydrate good fat good protein diet. Eliminate refined carbohydrates from the diet. Continue blood sugar and sugared beverages. Eat local organic when possible. Cook your own meals. Read food labels. None about healthy snacks. Portion control and food with low glycemic index 2. Exercise regularly. Try to get at least 6000 steps a day. Use a predominant to track activity level. Consider using apps like SeeYourImpact.org, [employer] Analytics[employer], lose it, stick as needed for self-monitoring and weight management. Consider group exercises. Consider hiring a six sigma black trainer. Regular exercise is schaefer to sustainable health and prevents as a buffer against weight regain 3. Sleep is most important for healing. Tried to sleep at least 8 hours a night. A good quality sleep needs a sleep ritual with ideal room temperature of around 68. It might help to take a shower and have no electronics in the room and sleep in a very dark room without artificial light. Start her sleep routine and get up early in the morning and go to bed on time 4. Make a social connection. Surround yourself with positive people with positive energy. Connect with friends and family. 5. Get into the habit of meditating and mindfulness while doing everything. 6. Go outside and connect with nature. C. Prescription medications Patient was educated on the use of prescription medications for medical weight loss. This is a growing list and includes phentermine, Topamax,Qsymia, contrave, belviq and saxenda, wegovy All prescription medications could have side effects including but not limited to kidney stones, seizure disorder cardiac arrhythmias heart attack pancreatitis etc. etc.. Patient was encouraged to read the prescription insert and have coaching with their pharmacist and make an informed decision about taking medication and know that these medications are being prescribed with good intentions and we do not know how a patient would react to her medication. Sudden medications are FDA approved for weight loss and there is also off label use depending on patient's inability to afford medications in an attempt to lose weight D. Behavioral counseling was done to establish a relationship between food and an mood. Patient was provided information about local counseling and psychiatry and Dr Morton at [facility]. We would like to cover regular topics and build on low glycemic eating exercise mindful eating, using yoga and meditation along with deep breathing and connecting with friends and family. E. MASS PAT reviewed, Patient's current medications were reviewed and opinion was given on medication that can cause weight gain and can be substituted F. Patient was assessed for risk with obesity including and not limiting to atherosclerosis heart disease stroke kidney disease, restrictive lung disease, irritable bowel syndrome and overall mortality. Risk of developing prediabetes diabetes and metabolic syndrome was discussed G. Therapeutic plan: We have decided to make therapeutic plan which would include choosing wisely on calories restricting portion getting active, tracking weight, getting good quality sleep and working on time management H. Patient will follow up in (4) weeks for weight management Of note, some information is being carried forward from prior records for informational purposes only and is being cited so that efficiency, safety and quality of the patient's care is not compromised This note was prepared using voice recognition software and direct typing Please excuse inadvertent salvage winder or typing errors, or uncorrected word substitutions Although every attempt has been made by the provider to proofread this document, occasional misspellings and typographical errors may still be present Due to the previous pandemic, and the use of personal protective equipment (PPE) This may decrease voice recognition accuracy Inadvertent salvage winder errors may occur PLAN OF TREATMENT No Information Insurance Providers Payer Name Payer Address Payer Phone Subscriber Number Group Number Insured Name Patient Relationship to Insured Coverage Start Date Coverage End Date [facility] [address] [place] [address] [id number] Delmy Mcghee Self - patient is the insured 4 5 MEDICATIONS ADMINISTERED Medication Instructions Date of Administration Dosage Notes Semaglutide 10/25/2023 0.25 mg Semaglutide 11/15/2023 0.25 mg Semaglutide 11/22/2023 0.5 mg Semaglutide 11/28/2023 0.5 mg L tricep SQ Semaglutide 12/07/2023 0.5 mg MEDICAL (GENERAL) HISTORY Medical History History ICD Code brain aneurism hyperglycemia Hospitalization History Reason Date(Month/Year) ankle disclocation
--- OUTSIDE RECORDS SUMMARY | 2024-10-02 14:49 | XMS_ITS | Clinical Summary ---
Author Organization [employer] Address [address] [place] [address] Care Team Providers Care Fish Egg Packer Name Role Phone Unavailable Primary Care Provider Unavailabl e Immunizations Name Administration Dates Next Due Influenza, seasonal, injectable, preservative fr ee 05/30/2024 Pfizer Covid-19 Vaccine 12+ 05/30/2024 TD (adult), 2 Lf tetanus tox oid, preservative free, adsorbed 06/13/2019 Tdap 12/27/2020 Zoster, Recombinant 12/11/2020,09/23/2020 Social History Tobacco Use Types Packs/Day Years Used Date Smoking Tobacco: Never Assessed Comments Unknown Sex and Gender Information Value Date Recorded Sex Assigned at Female 05/30/2024 1:45 PM EDT Legal Sex Female 1:43 PM EDT Gender Identity Female 05/30/2024 1:45 PM EDT Sexual Orientation Don't know 05/30/2024 1: 45 PM EDT Plan of Treatment Health Maintenance Due Date Last Done Comments CT Colonography 1959 Colonoscopy 1959 Colorectal Cancer Screening 1959 Depression Screening 1959 FIT DNA/Cologuard 1959 FIT 1959 FOBT 1959 SDOH Screening 1959 Sigmoidoscopy 1959 Alcohol/Substance Use Screening 1971 Tobacco Screening 1971 Hepatitis C Screening 1977 Pap Smear 1980 Cervical Cancer Screening 1989 HPV/Cotest 1989 Mammogram 1999 Pneumococcal Vaccine: 50+ Years (1 of 1 - PCV) 2009 DTaP/Tdap/Td Vaccines (2 - T d or Tdap) 12/27/2030 12/27/2020, 06/13/2019 RSV Patients and Patients Aged 60 years or older (1 - 1-dose 75+ series) 2034 Zoster Vaccines Completed 12/11/2020, 09/23/2020 COVID-19 Vaccine Completed 05/30/2024, 11/18/2020, 10/21/2020 Influenza Vaccine Completed 05/30/2024 HIB Vaccines Aged Out No longer eligi ble based on patient's age to complete this topic HPV Vaccines Aged Out No longer eligi ble based on patient's age to complete this topic Hepatitis A Vaccines Aged Out No long er eligible based on patient's age to complete this topic Hepatitis B Vaccines Aged Out No long er eligible based on patient's age to complete this topic IPV Vaccines Aged Out No longer eligi ble based on patient's age to complete this topic Meningococcal Vaccine Aged Out No wilman jose eligible based on patient's age to complete this topic RSV under 20 months Aged Out No longe r eligible based on patient's age to complete this topic Rotavirus Vaccines Aged Out No longer eligible based on patient's age to complete this topic [place] [address] [place] [address] MEDICARE SUPPLEMENT
--- OUTSIDE RECORDS SUMMARY | 2024-10-02 14:49 | XMS_ITS ---
Author Organization [facility] Address [address] [place] [address] Care Team Providers Care Leaf Blender Name Role Phone YOKOCHARAN YVONNE Unavailable [phone] ALLERGIES Allergen (clinical drug ingredient) Drug/Non Drug Allergy documented on EMR Reaction Allergy Type Onset Date Status hydromorphone Dilaudid hives Drug Allergy Act arlene REASON FOR VISIT Pt seen in office for wt mgt f/u visit with ROBYN. Pt educated on new Glp-1 policys. Pt also received SEMA injection given in lower left Abd, Pt tolerated well with no interactions and discharged in stable condition. Pt received SEMA .5mg on RLQ sub q, pt tolerated well with no reaction. MEDICATIONS Medication SIG (Take, Route, Fr equency, Duration) Notes Start Date End Date Status Wegovy 1 MG/0.5ML 1mg Subcutaneous wee kly for 30 days Active Sertraline HCl 20 MG/ML 5 mL mixed with 4 ounces of water, orange juice, lemonade, salina mateo or lemon/yavapai-apache soda Orally Once a day Active VITAL SIGNS Heart Rate 72 /min 12/07/2023 Blood pressure systolic 120 mm Hg 12/07/19 24 Blood pressure diastolic 76 mm Hg 024 Weight 156 lbs 12/07/2023 BMI 30.46 kg/m2 12/07/2023 Height 60 in 12/07/2023 Oximetry 97 % 12/07/2023 Encounters Encounter Location Date Provider Diagnosis [facility] [address] [facility] [address] [place] [address] 12/07/2023 YVONNE RAMIREZ Other obesity due to excess calories E66.09 ; Body mass index [BMI] 30.0-30.9, adult Z68.30 ; Anxiety disorder, unspecified F41.9 and Depression, unspecified F32.A ASSESSMENTS Encounter Date Diagnosis Assessment Notes Treatment Notes Treatment Clinical Notes Section Notes 12/07/2023 Other obesity due to excess calories [...] minimum of [address] most recent [place] [employer] of clinical endocrinologists and [place] [employer] of endocrinology guidelines recommend patients who [...] management. Consider group exercises. Consider hiring a personal care service provider. Regular exercise is schaefer to sustainable health [...] counseling and psychiatry and Dr Morton at [facility]. We would like to cover regular topics [...] software and direct typing Please excuse inadvertent floral designer salesperson or typing errors, or uncorrected word substitutions Although every attempt has been made by the provider to proofread this document, occasional misspellings and typographical errors may still be present Due to the previous pandemic, and the use of personal protective equipment (PPE) This may decrease voice recognition accuracy Inadvertent floral designer salesperson errors may occur 12/07/2023 Body mass index [...] minimum of [address] most recent [place] Association of clinical endocrinologists and [place] [employer] of endocrinology guidelines recommend patients who [...] track activity level. Consider using apps like Touch Bionics, GetFreshpal, lose it, stick as needed for self-monitoring and weight management. Consider group exercises. Consider hiring a personal care service provider. Regular exercise is schaefer to sustainable health [...] counseling and psychiatry and Dr Morton at [facility]. We would like to cover regular topics [...] software and direct typing Please excuse inadvertent floral designer salesperson or typing errors, or uncorrected word substitutions Although every attempt has been made by the provider to proofread this document, occasional misspellings and typographical errors may still be present Due to the previous pandemic, and the use of personal protective equipment (PPE) This may decrease voice recognition accuracy Inadvertent floral designer salesperson errors may occur 12/07/2023 Anxiety disorder, unspecified [...] minimum of [address] The most recent [place] Association of clinical endocrinologists and [place] [employer] of endocrinology guidelines recommend patients who [...] track activity level. Consider using apps like Touch Bionics, GetFreshpal, lose it, stick as needed for self-monitoring and weight management. Consider group exercises. Consider hiring a personal care service provider. Regular exercise is schaefer to sustainable health [...] counseling and psychiatry and Dr Morton at [facility]. We would like to cover regular topics [...] software and direct typing Please excuse inadvertent floral designer salesperson or typing errors, or uncorrected word substitutions Although every attempt has been made by the provider to proofread this document, occasional misspellings and typographical errors may still be present Due to the previous pandemic, and the use of personal protective equipment (PPE) This may decrease voice recognition accuracy Inadvertent floral designer salesperson errors may occur 12/07/2023 Depression, unspecified (ICD-10 [...] minimum of [address] The most recent [place] Association of clinical endocrinologists and [place] [employer] of endocrinology guidelines recommend patients who [...] track activity level. Consider using apps like Touch Bionics, GetFreshpal, lose it, stick as needed for self-monitoring and weight management. Consider group exercises. Consider hiring a personal care service provider. Regular exercise is schaefer to sustainable health [...] counseling and psychiatry and Dr Morton at [facility]. We would like to cover regular topics [...] software and direct typing Please excuse inadvertent floral designer salesperson or typing errors, or uncorrected word substitutions Although every attempt has been made by the provider to proofread this document, occasional misspellings and typographical errors may still be present Due to the previous pandemic, and the use of personal protective equipment (PPE) This may decrease voice recognition accuracy Inadvertent floral designer salesperson errors may occur PLAN OF TREATMENT Medication Medication Name Sig Start Date Stop Date Notes Wegovy 1 MG/0.5ML 1mg Subcutaneous weekly for 30 days MEDICATIONS ADMINISTERED Medication Instructions Date of Administration Dosage Notes Semaglutide 12/07/2023 0.5 mg Progress Notes * Baldemar TORRESOB: [birth year] (63 yo F)Acc No.[id number]:12/07/2023 Patient:??Delmy TORRES Provider:??YVONNE RAMIREZ NP :1960?Age:63 Y?Sex:Fe male Date:12/07/2023 Address:[address] [id number] Subjective: * Chief Complaints: * ?1. Pt seen in office f or wt mgt f/u visit with SECA. Pt educated on new Glp-1 policys. Pt also received SEMA injection given in lower left Abd, Pt tolerated well with no interactions and discharged in stable condition. Pt received SEMA .5mg on RLQ sub q, pt tolerated well with no reaction.. * HPI: ?Constitutional:? Patient is here today for a weight management f/u visit ?Patient seen and examined. ? Full past medical history, social history, family history, ?allergies and current medications were reviewed and updated. ?Body composition analysis reviewed today, as expected increased BMI, ?visceral adiposity, fat mass index, waist cirumference ?Good skeletal mass composition, Good water composition ?Caloric energy expenditure discussed ?#Weight Management ?12/07/2023 ?Patient was started on compounded semaglutide ?Currently on 0.5 mg dose, due for third dose today here in the office. ?Mild nausea, but does not take any medicaton for it ?Otherwise doing well, but does not see much results ?We did send for 1 mg of Wegovy tradename, to be transitioned starting next week likely needs PA ?Continues to add protein in her diet with smoothies and meats ?Exercises 2 times per week. She is physically active at work and at home. ?Does not take vitamins ?10/2023 In-office hemoglobin A1c of 5.4% ?Discussed Wegovy, has [employer] insurance ?Also discussed in-office compounded semaglutide ?Discussed the importance of protein-calorie nutrition, maintaining muscle mass, vit b12, biotin, iron ?while on GLP-1 medications, dual incretins, appetite suppressants ?12/07/2023, Weight 156 , BMI 30 ?10/25/2023: Weight 156 lbs, BMI 30 ?Patient referred to us by work friends Veronica and Rayalayla Szymanski who are both weight mgt pts of this practice ?Patient works for [employer], owned by her family ?PCP Dr. Vickie Jorgensen @ [facility] ?Has not done recent labs through PCP. Does yearly labs. ?Highest weight: 175 lbs ?Lowest weight: 107 lbs ?Goal weight: 120 lbs ?ROOPA screening/STOP-BANG/Gonvick: No sx ?Metabolic workup:* ?Comprehensive labs 3 months ago at PCP, [facility] ?Hemoglobin A1c was elevated. Unsure of value ?10/2023 In-office hemoglobin A1c of 5.4% ?Thyroid? No recent screening ?Diabetes? No recent screening ?Has not had an echocardiogram recently. ?Diet: Eats late after 7 pm. Increased cravings/nervous eating. Lives with parents and states she's having to eat with them late at night ?Exercise: Walks at work a lot. Uses staircases. Tries to park her car far away so she can walk more. Currently not tracking steps daily. ?Non-smoker. Quit 8 years ago ?ETOH use: Quit 9 years ago. * ROS:?All Other Systems:?Review of Systems (ROS)??All others negative except those mentioned in HPI.? * Medical History:??Brain aneu rism, Hyperglycemia. * Surgical History:??Denies Pa st Surgical History. * Hospitalization/Major Diagno stic Procedure:??ankle disclocation . * Family History:??Father: amanda ve 89 yrs.??Mother: alive 90 yrs.??2 brother(s) , 4 sister(s) . .?? mother-fluid in lungs father- healthy one brother at the age of 39 due to heart problems Pt denies having any concerns with her current living situation. * Social History:?Pt denies any current alchohol, tobacco and recreational drug use ???Pt quit smoking in 2005 and quit drinking in 2014. * Medications:??Taking Wegovy 1 MG/0.5ML Solution Auto-injector 1mg Subcutaneous weekly , Taking Sertraline HCl 20 MG/ML Concentrate 5 mL mixed with 4 ounces of water, orange juice, lemonade, salina mateo or lemon/yavapai-apache soda Orally Once a day , Medication List reviewed and reconciled with the patient * Allergies:??Dilaudid: hives. Objective: * Vitals:??HR:72/min, BP:120/7 6mm Hg, Wt:156lbs, BMI:30.46Index, Ht: 60 in, Oxygen sat %:97%. * Examination: ?General Examination: ?GENERAL APPEARANCE:??in no acute distress, well developed, well nourished.??HEAD:??normocephalic, atraumatic.??EYES:??pupils equal, round, reactive to light and accommodation.??EARS:??normal.??ORAL CAVITY:??mucosa moist.??THROAT:??clear.??NECK/THYROID:??neck supple, full range of motion, no cervical lymphadenopathy.??SKIN:??no suspicious lesions, warm and dry.??HEART:??no murmurs, regular rate and rhythm, S1, S2 normal.??LUNGS:??clear to auscultation bilaterally.??ABDOMEN:??normal, bowel sounds present, soft, nontender, nondistended.??EXTREMITIES:??no clubbing, cyanosis, or edema.??NEUROLOGIC:??nonfocal, motor strength normal upper and lower extremities, sensory exam intact.? Assessment: * Assessment: 1.??Other obesity due to exc ess calories - E66.09 (Primary)??2.??Body mass index [BMI] 30.0-30.9, adult - Z68.30??3.??Anxiety disorder, unspecified - F41.9??4.??Depression, unspecified - F32.A?? Will get a 0.5 mg semaglutid e compounded here today, third week Plan is [...] minimum of [address] The most recent [place] Association of clinical endocrinologists and [place] [employer] of endocrinology guidelines recommend patients who [...] or arrhythmias In the setting of potential stimulant/amphetamine use such as phentermine We have also [...] track activity level. Consider using apps like Touch Bionics, GetFreshpal, lose it, stick as needed for self-monitoring and weight management. Consider group exercises. Consider hiring a personal care service provider. Regular exercise is schaefer to sustainable health [...] counseling and psychiatry and Dr Morton at [facility]. We would like to cover regular topics [...] software and direct typing Please excuse inadvertent floral designer salesperson or typing errors, or uncorrected word substitutions Although every attempt has been made by the provider to proofread this document, occasional misspellings and typographical errors may still be present Due to the previous pandemic, and the use of personal protective equipment (PPE) This may decrease voice recognition accuracy Inadvertent floral designer salesperson errors may occur. Plan: * Treatment: * Therapeutic Injections:? Semaglutide : 0.5 mg (Route: Subcutaneous) given by Cali Gracia on subcutaneus * Procedure Codes:??48724 P/M DUMPER BULK SYSTEM, INDIV 15 MIN * Images: Billing Information: * Visit Code:?? 71723 Office Visit, Est Pt., Level 4. Modifiers: 25 * Procedure Codes:?? 86479 P/M DUMPER BULK SYSTEM, INDIV 15 MIN. * Sign off status: Completed true * Provider:??YVONNE RAMIREZ NP Date:??11/19 History and Physical Notes * HPI (History of Present Illness) Category Sub-Category Detail Notes Category Not es Constitutional Patient is here today for a weight management f/u visit Patient seen and examined. Full past medical history, social history, family history, allergies and current medications were reviewed and updated. Body composition analysis reviewed today, as expected increased BMI, visceral adiposity, fat mass index, waist cirumference Good skeletal mass composition, Good water composition Caloric energy expenditure discussed #Weight Management 12/07/2023 Patient was started on compounded semaglutide Currently on 0.5 mg dose, due for third dose today here in the office. Mild nausea, but does not take any medicaton for it Otherwise doing well, but does not see much results We did send for 1 mg of Wegovy tradename, to be transitioned starting next week likely needs PA Continues to add protein in her diet with smoothies and meats Exercises 2 times per week. She is physically active at work and at home. Does not take vitamins 10/2023 In-office hemoglobin A1c of 5.4% Discussed Webriany, [employer] insurance Also discussed in-office compounded semaglutide Discussed the importance of protein-calorie nutrition, maintaining muscle mass, vit b12, biotin, iron while on GLP-1 medications, dual incretins, appetite suppressants 12/07/2023, Weight 156 , BMI 30 10/25/2023: Weight 156 lbs, BMI 30 Patient referred to us by work friends Veronica and Raya Szmyanski who are both weight mgt pts of this practice Patient works for [employer], owned by her family PCP Dr. Vickie Jorgensen @ [facility] Has not done recent labs through PCP. Does yearly labs. Highest weight: 175 lbs Lowest weight: 107 lbs Goal weight: 120 lbs ROOPA screening/STOP-BANG/Gonvick: No sx Metabolic workup:* Comprehensive labs 3 months ago at [facility] Hemoglobin A1c was elevated. Unsure of value 10/2023 In-office hemoglobin A1c of 5.4% Thyroid? No recent screening Diabetes? No recent screening Has not had an echocardiogram recently. Diet: Eats late after 7 pm. Increased cravings/nervous eating. Lives with parents and states she's having to eat with them late at night Exercise: Walks at work a lot. Uses staircases. Tries to park her car far away so she can walk more. Currently not tracking steps daily. Non-smoker. Quit 8 years ago ETOH use: Quit 9 years ago Examination Category Sub-Category Detail Notes Category Not es General Examination GENERAL APPEARANCE: in no ac angelia distress, well developed, well nourished HEAD: normocephalic, atrau matic EYES: pupils equal, round, reactive to light and accommodation EARS: normal THROAT: clear NECK/THYROID: neck supple, full ra nge of motion, no cervical lymphadenopathy HEART: no murmurs, regular rate and rhythm, S1, S2 normal LUNGS: clear to auscultatio n bilaterally ABDOMEN: normal, bowel sounds present, soft, nontender, nondistended NEUROLOGIC: nonfocal, motor stre ngth normal upper and lower extremities, sensory exam intact SKIN: no suspicious lesion s, warm and dry EXTREMITIES: no clubbing, cyanosi s, or edema ORAL CAVITY: mucosa moist
--- OUTSIDE RECORDS SUMMARY | 2024-10-02 14:49 | XMS_ITS | Clinical Summary ---
Author Organization [facility] Address [address] [place] [address] Care Team Providers Care Kitchen Help Handyman Name Role Phone Vickie Jorgensen MD Primary [...] 11/08/2018 2:18 PM EDT Plan of Treatment Health Maintenance Due Date Last Done Comments Cologuard 1959 Colon Cancer Screening 1959 Colonoscopy 1959 FOBT / Fit Test 1959 HIV Screening 1959 HPV and Pap Smear 1959 Sigmoidoscopy 1959 Mammogram 1999 Osteoporosis Screening 2009 Cervical Cancer Screening 09/11/2023 Pap Smear 09/11/2023 09/11/2020 COVID-19 Vaccine (4 - 2023-2 5 season) 2024 07/12/2021, 11/18/2020, 10/21/2020 Influenza Vaccine (#1) 2024 Pneumococcal Vaccine: 65+ Years (1 of 1 - PCV) 2024 Alcohol/Substance Use Screening 08/21/2024 Health Care Proxy Review 08/21/2024 DTaP,Tdap,and Td Vaccines (2 - Td or Tdap) 12/27/2030 12/27/2020, 06/13/2019 RSV Vaccine (60+ years old a nd patients) (1 - 1-dose 75+ series) 2034 Zoster Vaccines Completed 12/11/2020, 09/23/2020 Hepatitis B Vaccines Aged Out No long er eligible based on patient's age to complete this topic Pneumococcal Vaccine: Pediatric (0-5 Years) and At-Risk Patients (6-64 Years) Aged Out No longer eligible based on patient's age to complete this topic Insurance [employer] Care Teams Kitchen Help Handyman Relationship Specialty Start Date End Date Vickie Jorgensen MD [address] [place] [address] PCP - General Internal Medicine 02/02/22
--- OUTSIDE RECORDS SUMMARY | 2024-10-02 14:49 | XMS_ITS ---
Author Organization [facility] Address [address] [place] [address] Care Team Providers Care Crackling Press Operator Name Role Phone YVONNE RAMIREZ Unavailable [phone] Encounters Encounter Location Date Provider Diagnosis [facility] [address] [facility] [address] [place] [address] 01/30/2024 YVONNE RAMIREZ PLAN OF TREATMENT No Information Progress Notes * Fabio TORRESenDOB: [birth year] (64 yo F)Acc No.[id number]:01/30/2024 Patient:??Delmy TORRES Provider:??VYONNE RAMIREZ NP :1960?Age:63 Y?Sex:Fe male Date:01/30/2024 Address:[address] [place], [place] [id number] Subjective: * Chief Complaints: * ? * HPI: ?Constitutional:? Patient is here today for a weight management f/u visit ?Patient seen and examined. ? Full past medical history, social history, family history, ?allergies and current medications were reviewed and updated. ?Body composition analysis reviewed today, as expected increased BMI, ?visceral adiposity, fat mass index, waist cirumference ?Good skeletal mass composition, Good water composition ?Caloric energy expenditure discussed ?#Weight Management ?01/30/2024 ?Patient was started on compounded semaglutide ?Currently [...] A1c of 5.4% ?Discussed Wegovy, has [employer] insurance ?Also discussed in-office compounded semaglutide ?Discussed the importance of protein-calorie nutrition, maintaining muscle mass, vit b12, biotin, iron ?while on GLP-1 medications, dual incretins, appetite suppressants ?01/30/2024, Weight , BMI ?12/07/2023, Weight 156 , BMI 30 ?10/25/2023: Weight 156 lbs, BMI 30 ?Patient referred to us by work friends Veronica and Raya Szymanski who are both weight mgt pts of this practice ?Patient works for [employer], owned by her family ?PCP Dr. Vickie Jorgensen @ [facility] ?Has not done recent labs through PCP. Does yearly labs. ?Highest weight: 175 lbs ?Lowest weight: 107 lbs ?Goal weight: 120 lbs ?ROOPA screening/STOP-BANG/Evant: No sx ?Metabolic workup:* ?Comprehensive labs 3 months ago at [facility] [place] ?Hemoglobin A1c was elevated. Unsure of value [...] except those mentioned in HPI.? * Medical History:?? Objective: Assessment: Plan: * Treatment: * Images: Billing Information: * Visit Code:?? * Procedure Codes:?? * Sign off status: Pending * Provider:??YVONNE RAMIREZ NP Date:??01/19 History and Physical Notes * HPI (History [...] composition Caloric energy expenditure discussed #Weight Management 01/30/2024 Patient was started on compounded semaglutide Currently [...] 10/2023 In-office hemoglobin A1c of 5.4% Discussed [place], [employer] insurance Also discussed in-office compounded semaglutide Discussed the importance of protein-calorie nutrition, maintaining muscle mass, vit b12, biotin, iron while on GLP-1 medications, dual incretins, appetite suppressants 01/30/2024, Weight , BMI 12/07/2023, Weight 156 , BMI 30 10/25/2023: Weight 156 lbs, BMI 30 Patient referred to us by work friends Veronica and Raya Szymanski who are both weight mgt pts of this practice Patient works for [employer], owned by her family PCP Dr. Vickie Jorgensen @ [facility] Has not done recent labs through PCP. Does yearly labs. Highest weight: 175 lbs Lowest weight: 107 lbs Goal weight: 120 lbs ROOPA screening/STOP-BANG/Evant: No sx Metabolic workup:* Comprehensive labs 3 months ago at PCP, [facility] [place] Hemoglobin A1c was elevated. Unsure of value [...]
== END 2024-10-02 14:55 | disposition home or self-care (01) ==
PROVIDERS: PCP Internal Medicine; Visit Provider Internal Medicine
DX: Z00.01 Encounter for general adult medical examination with abnormal findings (principal); E78.00 Pure hypercholesterolemia, unspecified; Z71.89 Other specified counseling; F41.1 Generalized anxiety disorder; M85.859 Other specified disorders of bone density and structure, unspecified thigh; Z23 Encounter for immunization

== ENCOUNTER → 2024-10-02 13:24 | Outpatient (BNVA) | payer OTHER, SELFPAY | PROVIDERS: PCP Internal Medicine; Visit Provider Internal Medicine | DX: Z00.01 Encounter for general adult medical examination with abnormal findings (principal); Z23 Encounter for immunization; E78.00 Pure hypercholesterolemia, unspecified; F41.1 Generalized anxiety disorder; M85.859 Other specified disorders of bone density and structure, unspecified thigh; Z71.89 Other specified counseling | CPT/HCPCS: 90471; 90677; 96127 ==

== ENCOUNTER 2024-11-22 07:53 | Outpatient (REF) | payer OTHER, SELFPAY ==
--- OUTSIDE RECORDS SUMMARY | 2024-11-22 07:56 | XMS_ITS ---
Author Organization [facility] Address [address] [place] [address] Care Team Providers Care Pile Driver Operator Helper Name Role Phone YOKOCHARAN YVONNE Unavailable [phone] ALLERGIES Allergen (clinical drug ingredient) Drug/Non Drug [...] water, orange juice, lemonade, salina mateo or lemon/moapa soda Orally Once a day Active VITAL SIGNS Blood pressure systolic 120 mm Hg 12/07/19 24 Blood pressure diastolic 76 mm Hg 024 Heart Rate 72 /min 12/07/2023 Height 60 in 12/07/2023 Weight 156 lbs 12/07/2023 BMI 30.46 kg/m2 12/07/2023 Oximetry 97 % 12/07/2023 Encounters Encounter Location Date Provider Diagnosis [facility] [address] [facility] [address] [place] [address] 12/07/2023 YVONNE RAMIREZ Other obesity due to [...] minimum of 6 months The most recent [place] Association of clinical endocrinologists and [place] College of endocrinology guidelines recommend patients who [...] Consider group exercises. Consider hiring a personal caregiver. Regular exercise is schaefer to sustainable health [...] counseling and psychiatry and Dr Morton at [facility]. We would like to cover regular topics [...] software and direct typing Please excuse inadvertent job captain or typing errors, or uncorrected word substitutions Although every attempt has been made by the provider to proofread this document, occasional misspellings and typographical errors may still be present Due to the previous pandemic, and the use of personal protective equipment (PPE) This may decrease voice recognition accuracy Inadvertent job captain errors may occur 12/07/2023 Body mass index [...] minimum of 6 months The most recent [place] Association of clinical endocrinologists and [place] College of endocrinology guidelines recommend patients who [...] track activity level. Consider using apps like AxioMed Spine, Exhbitpal, lose it, stick as needed for self-monitoring and weight management. Consider group exercises. Consider hiring a personal caregiver. Regular exercise is schaefer to sustainable health [...] counseling and psychiatry and Dr Morton at [facility]. We would like to cover regular topics [...] software and direct typing Please excuse inadvertent job captain or typing errors, or uncorrected word substitutions Although every attempt has been made by the provider to proofread this document, occasional misspellings and typographical errors may still be present Due to the previous pandemic, and the use of personal protective equipment (PPE) This may decrease voice recognition accuracy Inadvertent job captain errors may occur 12/07/2023 Anxiety disorder, unspecified [...] minimum of 6 months The most recent [place] Association of clinical endocrinologists and [place] College of endocrinology guidelines recommend patients who [...] track activity level. Consider using apps like AxioMed Spine, Exhbitpal, lose it, stick as needed for self-monitoring and weight management. Consider group exercises. Consider hiring a personal caregiver. Regular exercise is schaefer to sustainable health [...] counseling and psychiatry and Dr Morton at [facility]. We would like to cover regular topics [...] software and direct typing Please excuse inadvertent job captain or typing errors, or uncorrected word substitutions Although every attempt has been made by the provider to proofread this document, occasional misspellings and typographical errors may still be present Due to the previous pandemic, and the use of personal protective equipment (PPE) This may decrease voice recognition accuracy Inadvertent job captain errors may occur 12/07/2023 Depression, unspecified (ICD-10 [...] minimum of 6 months The most recent [place] Association of clinical endocrinologists and [place] College of endocrinology guidelines recommend patients who [...] track activity level. Consider using apps like AxioMed Spine, Exhbitpal, lose it, stick as needed for self-monitoring and weight management. Consider group exercises. Consider hiring a personal caregiver. Regular exercise is schaefer to sustainable health [...] counseling and psychiatry and Dr Morton at [facility]. We would like to cover regular topics [...] software and direct typing Please excuse inadvertent job captain or typing errors, or uncorrected word substitutions Although every attempt has been made by the provider to proofread this document, occasional misspellings and typographical errors may still be present Due to the previous pandemic, and the use of personal protective equipment (PPE) This may decrease voice recognition accuracy Inadvertent job captain errors may occur PLAN OF TREATMENT Medication Medication Name Sig Start Date Stop Date Notes Wegovy 1 MG/0.5ML 1mg Subcutaneous weekly for 30 days MEDICATIONS ADMINISTERED Medication Instructions Date of Administration Dosage Notes Semaglutide 12/07/2023 0.5 mg Progress Notes * Baldemar TORRESOB: [birth year] (63 yo F)Acc No.[id number]:12/07/2023 Patient:??Delmy TORRES Provider:??YVONNE RAMIREZ NP :1960?Age:63 Y?Sex:Fe male Date:12/07/2023 Address:[address] [facility] [id number] Subjective: * Chief Complaints: * ?1. Pt [...] A1c of 5.4% ?Discussed Wegovy, has [employer] insurance ?Also discussed in-office compounded semaglutide ?Discussed the importance of protein-calorie nutrition, maintaining muscle mass, vit b12, biotin, iron ?while on GLP-1 medications, dual incretins, appetite suppressants ?12/07/2023, Weight 156 , BMI 30 ?10/25/2023: Weight 156 lbs, BMI 30 ?Patient referred to us by work friends Veronica and Rayalayla Szymanski who are both weight mgt pts of this practice ?Patient works for [employer], owned by her family ?PCP Dr. Vickie Jorgensen @ [facility] ?Has not done recent labs through PCP. Does yearly labs. ?Highest weight: 175 lbs ?Lowest weight: 107 lbs ?Goal weight: 120 lbs ?ROOPA screening/STOP-BANG/[place]: No sx ?Metabolic workup:* ?Comprehensive labs 3 [...] water, orange juice, lemonade, salina mateo or lemon/moapa soda Orally Once a day , Medication [...] minimum of 6 months The most recent [place] Association of clinical endocrinologists and [place] College of endocrinology guidelines recommend patients who [...] track activity level. Consider using apps like AxioMed Spine, Exhbitpal, lose it, stick as needed for self-monitoring and weight management. Consider group exercises. Consider hiring a personal caregiver. Regular exercise is schaefer to sustainable health [...] counseling and psychiatry and Dr Morton at [facility]. We would like to cover regular topics [...] software and direct typing Please excuse inadvertent job captain or typing errors, or uncorrected word substitutions Although every attempt has been made by the provider to proofread this document, occasional misspellings and typographical errors may still be present Due to the previous pandemic, and the use of personal protective equipment (PPE) This may decrease voice recognition accuracy Inadvertent job captain errors may occur. Plan: * Treatment: * Therapeutic Injections:? Semaglutide : 0.5 mg (Route: Subcutaneous) given by Cali Gracia on subcutaneus * Procedure Codes:??76529 P/M AIRPLANE PILOT PHOTOGRAMMETRY, INDIV 15 MIN * Images: Billing Information: * Visit Code:?? 31653 Office Visit, Est Pt., Level 4. Modifiers: 25 * Procedure Codes:?? 60913 P/M AIRPLANE PILOT PHOTOGRAMMETRY, INDIV 15 MIN. * Sign off status: [...] In-office hemoglobin A1c of 5.4% Discussed [employer], [employer] insurance Also discussed in-office compounded semaglutide Discussed the importance of protein-calorie nutrition, maintaining muscle mass, vit b12, biotin, iron while on GLP-1 medications, dual incretins, appetite suppressants 12/07/2023, Weight 156 , BMI 30 10/25/2023: Weight 156 lbs, BMI 30 Patient referred to us by work friends Veronica and Raya Szymanski who are both weight mgt pts of this practice Patient works for [employer], owned by her family PCP Dr. Vickie Jorgensen @ [facility] Has not done recent labs through PCP. Does yearly labs. Highest weight: 175 lbs Lowest weight: 107 lbs Goal weight: 120 lbs ROOPA screening/STOP-BANG/[place]: No sx Metabolic workup:* Comprehensive labs 3 months ago at [facility] Hemoglobin A1c was elevated. Unsure of value [...] General Examination GENERAL APPEARANCE: in no ac manzanita distress, well developed, well nourished HEAD: normocephalic, [...]
--- OUTSIDE RECORDS SUMMARY | 2024-11-22 07:56 | XMS_ITS ---
Author Organization [facility] Address [address] [place] [address] Care Team Providers Care Reforestation Worker Name Role Phone YVONNE RAMIREZ Unavailable [phone] REASON FOR VISIT cx and r/s appt Encounters Encounter Location Date Provider Diagnosis [address] [place] [address] 01/29/2024 YVONNE RAMIREZ PLAN OF TREATMENT No Information Progress Notes * Fabio TORRESenDOB: [birth year] (63 yo F)Acc No.[id number]:01/29/2024 Patient:??MELISSAMegan PEDERSENleen :1960?Age:63 Y?Sex:Fe male Address:[address] [place] [address] * true * Date:??
--- OUTSIDE RECORDS SUMMARY | 2024-11-22 07:57 | XMS_ITS | Referral Summary ---
Author Organization [facility] Address [address] [place] [address] Care Team Providers Care Evaluation Specialist Name Role Phone Vickie Jorgensen MD Primary [...] Plan of Treatment Not on file Insurance [facility] Care Teams Evaluation Specialist Relationship Specialty Start Date End Date Vickie Jorgensen MD [address] [place] [address] PCP - General Internal Medicine 02/02/22
--- OUTSIDE RECORDS SUMMARY | 2024-11-22 07:57 | XMS_ITS | Clinical Summary ---
Author Organization [employer] Address [address] [facility] [address] [place] [address] Care Team Providers Care Mentally Retarded Teacher Name Role Phone Unavailable Primary Care Provider [...] patient's age to complete this topic [place] [address] [place] [address] MEDICARE SUPPLEMENT
--- OUTSIDE RECORDS SUMMARY | 2024-11-22 07:57 | XMS_ITS | Clinical Summary ---
Author Organization [facility] Address [address] [place] [address] Care Team Providers Care Director Of Event Marketing Name Role Phone Vickie Jorgensen MD Primary [...] HPV and Pap Smear 1960 Sigmoidoscopy 1960 Osteoporosis Screening 2009 Pneumococcal Vaccine: 50+ Years (1 of 1 - PCV) 2009 Cervical Cancer Screening 09/11/2023 Pap Smear 09/11/2023 09/11/2020 COVID-19 Vaccine (4 - 2023-2 5 season) 2024 07/12/2021, 11/18/2020, 10/21/2020 Alcohol/Substance Use Screening 08/21/2024 Health Care Proxy Review 08/21/2024 Influenza Vaccine (Season Ended) 2025 DTaP,Tdap,and Td Vaccines (2 - Td or Tdap) 12/27/2030 12/27/2020, 06/13/2019 RSV Vaccine (60+ years old a nd patients) (1 - 1-dose 75+ series) 2034 Zoster Vaccines Completed 12/11/2020, 09/23/2020 Hepatitis B Vaccines Aged Out No long er eligible based on patient's age to complete this topic Insurance [employer] Care Teams Director Of Event Marketing Relationship Specialty Start Date End Date Vickie Jorgensen MD [address] [place] [address] PCP - General Internal Medicine 02/02/22
--- OUTSIDE RECORDS SUMMARY | 2024-11-22 07:57 | XMS_ITS | Patient Health Record ---
Author Organization [facility] Address [address] [place] [address] Care Team Providers Care Mail Reader Name Role Phone YVONNE RAMIREZ Unavailable [phone] ALLERGIES Allergen (clinical drug ingredient) Drug/Non Drug [...] water, orange juice, lemonade, salina mateo or lemon/kiana soda Orally Once a day Active PROBLEMS Problem Type ICD Code Onset Dates Problem Status W/U Status Risk SNOMED Code Notes Problem Other obesity due to excess calories (E66.09) Active confirmed 917099481 Problem Anxiety disorder, unspecified (F41.9) Active confirmed 179057829 Problem Body mass index [BMI] 30.0-30.9, adult (Z68.30) Active confirmed 528677870 VITAL SIGNS Heart Rate 72 /min 12/07/2023 Blood pressure diastolic 76 mm Hg 12/07/2023 Oximetry 97 % 12/07/2023 Height 60 in 12/07/2023 Blood pressure systolic 120 mm Hg 12/07/2023 Weight 156 lbs 12/07/2023 BMI 30.46 kg/m2 12/07/2023 Encounters Encounter Location Date Provider Diagnosis [facility] [address] [address] 11/28/[address] [facility] [address] [facility] [address] [place] [address] 11/29/[address] [facility] [address] [place] [address] 01/30/[address] [facility] [address] [facility] [address] [facility] [address] [place] [address] 12/07/2023 YVONNE RAMIREZ Other obesity due to excess calories E66.09 ; Body mass index [BMI] 30.0-30.9, adult Z68.30 ; Anxiety disorder, unspecified F41.9 and Depression, unspecified F32.A [address] [facility] [address] [place] [address] 01/29/2024 YVONNE RAMIREZ ASSESSMENTS Encounter Date Diagnosis Assessment [...] minimum of 6 months The most recent [place] Association of clinical endocrinologists and [place] College of endocrinology guidelines recommend patients who [...] track activity level. Consider using apps like Trigemina, KSKTpal, lose it, stick as needed for self-monitoring and weight management. Consider group exercises. Consider hiring a personalized living manager. Regular exercise is schaefer to sustainable health [...] counseling and psychiatry and Dr Morton at [facility]. We would like to cover regular topics [...] software and direct typing Please excuse inadvertent litigation paralegal or typing errors, or uncorrected word substitutions Although every attempt has been made by the provider to proofread this document, occasional misspellings and typographical errors may still be present Due to the previous pandemic, and the use of personal protective equipment (PPE) This may decrease voice recognition accuracy Inadvertent litigation paralegal errors may occur 12/07/2023 Body mass index [BMI] 30.0-30.9, adult (ICD-10 - Z68.30) Will get a 0.5 mg semaglutide compounded here today, third week Plan is to transition to tradename Polina 1 mg Starting in 1 week Total [...] minimum of 6 months The most recent [place] Association of clinical endocrinologists and [place] College of endocrinology guidelines recommend patients who [...] track activity level. Consider using apps like Trigemina, KSKTpal, lose it, stick as needed for self-monitoring and weight management. Consider group exercises. Consider hiring a personalized living manager. Regular exercise is schaefer to sustainable health [...] counseling and psychiatry and Dr Morton at [facility]. We would like to cover regular topics [...] software and direct typing Please excuse inadvertent litigation paralegal or typing errors, or uncorrected word substitutions Although every attempt has been made by the provider to proofread this document, occasional misspellings and typographical errors may still be present Due to the previous pandemic, and the use of personal protective equipment (PPE) This may decrease voice recognition accuracy Inadvertent litigation paralegal errors may occur 12/07/2023 Anxiety disorder, unspecified [...] minimum of 6 months The most recent [place] Association of clinical endocrinologists and [place] College of endocrinology guidelines recommend patients who [...] track activity level. Consider using apps like NodePingise, myfitnesspal, lose it, stick as needed for self-monitoring and weight management. Consider group exercises. Consider hiring a personalized living manager. Regular exercise is schaefer to sustainable health [...] counseling and psychiatry and Dr Morton at [facility]. We would like to cover regular topics [...] software and direct typing Please excuse inadvertent litigation paralegal or typing errors, or uncorrected word substitutions Although every attempt has been made by the provider to proofread this document, occasional misspellings and typographical errors may still be present Due to the previous pandemic, and the use of personal protective equipment (PPE) This may decrease voice recognition accuracy Inadvertent litigation paralegal errors may occur 12/07/2023 Depression, unspecified (ICD-10 [...] minimum of 6 months The most recent [place] Association of clinical endocrinologists and [place] College of endocrinology guidelines recommend patients who [...] track activity level. Consider using apps like Trigemina, myfitnesspal, lose it, stick as needed for self-monitoring and weight management. Consider group exercises. Consider hiring a personalized living manager. Regular exercise is schaefer to sustainable health [...] counseling and psychiatry and Dr Morton at [facility]. We would like to cover regular topics [...] software and direct typing Please excuse inadvertent litigation paralegal or typing errors, or uncorrected word substitutions Although every attempt has been made by the provider to proofread this document, occasional misspellings and typographical errors may still be present Due to the previous pandemic, and the use of personal protective equipment (PPE) This may decrease voice recognition accuracy Inadvertent litigation paralegal errors may occur PLAN OF TREATMENT No Information Insurance Providers Payer Name Payer Address Payer Phone Subscriber Number Group Number Insured Name Patient Relationship to Insured Coverage Start Date Coverage End Date [facility] [address] [place] [address] [id number] Delmy Mcghee Self - patient is the [...]
--- OUTSIDE RECORDS SUMMARY | 2024-11-22 07:57 | XMS_ITS ---
Author Organization [facility] Address [address] [place] [address] Care Team Providers Care Farm Machinery Erector Name Role Phone YVONNE RAMIREZ Unavailable [phone] Encounters Encounter Location Date Provider Diagnosis [facility] [address] [facility] 119 [place] [address] 01/30/2024 YVONNE RAMIREZ PLAN OF TREATMENT No Information Progress Notes * Fabio TORRESenDOB: [birth year] (64 yo F)Acc No.[id number]:01/30/2024 Patient:??Delmy TORRES Provider:??YVONNE RAMIREZ NP :1960?Age:63 Y?Sex:Fe male Date:01/30/2024 Address:[address] [place], [place] [id number] Subjective: * Chief Complaints: * ? * [...] A1c of 5.4% ?Discussed Wegovy, has [employer] insurance ?Also discussed in-office compounded semaglutide ?Discussed [...] pts of this practice ?Patient works for [employer], owned by her family ?PCP Dr. Vickie Jorgensen @ [facility] ?Has not done recent labs through PCP. Does yearly labs. ?Highest weight: 175 lbs ?Lowest weight: 107 lbs ?Goal weight: 120 lbs ?ROOPA screening/STOP-BANG/[place]: No sx ?Metabolic workup:* ?Comprehensive labs 3 months ago at [facility] ?Hemoglobin A1c was elevated. Unsure of value [...] In-office hemoglobin A1c of 5.4% Discussed [place], [employer] insurance Also discussed in-office compounded semaglutide Discussed [...] pts of this practice Patient works for [employer], owned by her family PCP Dr. Vickie Jorgensen @ [facility] Has not done recent labs through PCP. Does yearly labs. Highest weight: 175 lbs Lowest weight: 107 lbs Goal weight: 120 lbs ROOPA screening/STOP-BANG/[place]: No sx Metabolic workup:* Comprehensive labs 3 months ago at PCP, [facility] Hemoglobin A1c was elevated. Unsure of value [...]
--- OUTSIDE RECORDS SUMMARY | 2024-11-22 07:57 | XMS_ITS | Encounter Summary ---
Author Organization [facility] Address [address] [place] [address] Care Team Providers Care Continuous Process Coffee Roaster Name Role Phone Vickie Jorgensen MD Primary Care Provider Encounter Details Date Type Department Care Team (Late st Contact Info) Description 10/23/2020 Orders Only [facility] Interventional Radiology [address] [place], [place] [phone] Linette Sal MD [address] [place], [place] [phone] Social History Tobacco Use Types Packs/Day Years [...] on filedocumented in this encounter Care Teams Continuous Process Coffee Roaster Relationship Specialty Start Date End Date Vickie Jorgensen MD [address] [place] [address] PCP - General Internal Medicine 02/02/22 documented as of this encounter
[2024-11-22 10:12] LABS: MANUAL DIFF FLAG NO
[2024-11-22 10:42] LABS: Basophils Absolute Auto 0.1 X10*3/uL (0.0-0.2); Eosinophils Absolute Auto 0.1 X10*3/uL (0.0-0.4); Eosinophils Percent Auto 2.3 % (0-4); Hematocrit 41.6 % (37.0-47.0); Hemoglobin 13.9 g/dl (12.0-16.0); Imm Gran Abs Auto 0.02 X10*3/uL (0.00-0.03); Imm Gran Pct Auto 0.4 % (0.0-0.4); Lymphocytes Absolute Auto 1.1 X10*3/uL (1.2-4.9); Lymphocytes Percent Auto 22.3 % (20-40); Mean Corpuscular HGB Conc 33.4 g/dl (31.0-35.0); Mean Corpuscular Hemoglobin 31.2 pg (27.0-33.0); Mean Corpuscular Volume 93.5 fL (80.0-98.0); Mean Platelet Volume 13.8 fL (9.4-12.3); Monocytes Absolute Auto 0.5 X10*3/uL (0.1-1.2); Monocytes Percent Auto 8.8 % (2-11); Neutrophils Absolute Auto 3.3 x10*3/uL (2.0-8.3); Neutrophils Percent Auto 65.2 % (45-73); Platelet Count 145 X10*3/uL (160-400); Red Blood Count 4.45 X10*6/uL (4.20-5.50); Red Cell Distribution Width 12.2 % (11.0-16.0); White Blood Count 5.1 X10*3/uL (4.8-10.8)
[2024-11-22 10:46] LABS: Alanine Aminotransferase 22 U/L (0-31); Anion Gap 11 (12-20); Aspartate Amino Transferase 22 U/L (5-31); Blood Urea Nitrogen 27 mg/dL (9-16); Calcium 9.4 mg/dL (8.4-10.2); Carbon Dioxide 29 mmol/L (22-29); Chloride 108 mmol/L (96-108); Cholesterol 197 mg/dL (<200); Estimated Glomerular Filt Rate > 60; Glucose Fasting 82 mg/dL (60-99); HDL Cholesterol 59 mg/dL (>40); LDL Cholesterol Calculated 119 mg/dL (<100); Potassium 4.9 mmol/L (3.3-5.1); Sodium 143 mmol/L (135-145); Triglycerides 98 mg/dL (<150)
[2024-11-22 11:21] LABS: Vitamin D 25-OH Total 49.7 ng/mL (>30)
== END 2024-11-22 07:54 | disposition home or self-care (01) ==
LOC: HO.HMGCLDS 07:53
PROVIDERS: PCP Internal Medicine; Visit Provider Internal Medicine
DX: Z00.01 Encounter for general adult medical examination with abnormal findings (principal); E78.00 Pure hypercholesterolemia, unspecified; Z71.89 Other specified counseling; Z13.1 Encounter for screening for diabetes mellitus; M85.859 Other specified disorders of bone density and structure, unspecified thigh
CPT/HCPCS: 36415; 80048; 80061; 82306; 84450; 84460; 85025